=== PATIENT | male | born 1960 | race Caucasian/White ===

== ENCOUNTER 2016-05-13 12:10 | Inpatient (IN) | payer MEDICAID ==
[~2016-05-13] VITALS: Ht 182.9 cm; Wt 70.5 kg
[~2016-05-13 12:10] MED LIST: ATOR10TA PO; LISI5TAB7 PO; NOVALOG; [UNRECOGNIZED DRUG - OTHER]
[2016-05-13] MEDS ORDERED: ONDANSETRON 2MG/ML, 2ML IVPush ONE (12:30)
[2016-05-13] MEDS ORDERED: SODIUM CHLORIDE 0.9% 1,000ML IVBOLUS ONE (12:30)
[2016-05-13] MEDS ORDERED: ONDANSETRON 2MG/ML, 2ML ONE (12:40)
[2016-05-13 12:46] LABS: PH, VENOUS 7.371 pH (7.320-7.420)
[2016-05-13 12:47] LABS: HEMOGLOBIN 14.4 g/dL (13.7-18.0)
[2016-05-13 12:59] LABS: BLOOD UREA NITROGEN 14 mg/dL (7-18)
[2016-05-13 13:02] LABS: ASPARTATE AMINO TRANSFERASE 42 U/L (15-37)
[2016-05-13] MEDS ORDERED: INSULIN REGULAR 100 UNITS/ML, 3ML VIAL ONE (14:16)
[2016-05-13] MEDS ORDERED: INSULIN REGULAR 100 UNITS/ML, 3ML VIAL SQ-INSULIN ONE (14:30)
[2016-05-13] MEDS ORDERED: ASPI-621 PO (16:07)
[2016-05-13] MEDS ORDERED: INSU300I SQ (16:08)
[2016-05-13] MEDS ORDERED: INSU100C5 SQ-INSULIN (16:09)
[2016-05-13] MEDS: SODIUM CHLORIDE 0.9% 1,000 ML IV SCH ×2 (17:56→20:09)
[2016-05-13] MEDS ORDERED: BISACODYL 10 MG SUPP PR PRN (18:00)
[2016-05-13] MEDS ORDERED: ONDANSETRON 2MG/ML, 2ML IVP PRN (18:00)
[2016-05-13] MEDS ORDERED: DOCUSATE 100 MG CAPSULE PO PRN (18:00)
[2016-05-13] MEDS ORDERED: POLYETHYLENE GLYCOL 17 GM PACKET PO PRN (18:00)
[2016-05-13] MEDS: HEPARIN 5,000 UNITS/ML, 1ML SQ SCH (18:00)
[2016-05-13] MEDS: INSULIN REGULAR 100 UNITS/ML, 3ML VIAL SQ-INSULIN SCH ×2 (18:00→21:00)
[2016-05-13] MEDS ORDERED: ACETAMINOPHEN 325 MG TABLET PO PRN (18:00)
[2016-05-13] MEDS ORDERED: POTASSIUM PHOSPHATE 44 MEQ in SODIUM CHLORIDE 0.9% 500 ML IV ONE (18:30)
[2016-05-13 19:01] VITALS: BP 113/68
[2016-05-13] MEDS ORDERED: INSULIN GLARGINE HUM REC ANLOG 35 UNIT SQ SCH (21:00)
[2016-05-13 21:17] LABS: BLOOD UREA NITROGEN 10 mg/dL (7-18)
[2016-05-14] MEDS ORDERED: INSULIN DETEMIR 100 UNITS/ML, PEN SQ-INSULIN SCH (00:29)
[2016-05-14] MEDS: INSULIN REGULAR 100 UNITS/ML, 3ML VIAL SQ-INSULIN SCH (00:37)
[2016-05-14] MEDS: SODIUM CHLORIDE 0.9% 1,000 ML IV SCH ×2 (00:40→04:10)
[2016-05-14] MEDS ORDERED: HYDROcodone/APAP 5/325 TABLET PO PRN (01:30)
[2016-05-14] MEDS ORDERED: FAMOTIDINE 20 MG TABLET PO ONE (01:30)
[2016-05-14] MEDS ORDERED: MAALOX/HYOSCYAMINE/LIDOCAINE 45 ML BOTTLE PO ONE (01:30)
[2016-05-14] MEDS ORDERED: CALCIUM CARBONATE 500 MG TAB.CHEW PO PRN (01:30)
[2016-05-14] MEDS: HEPARIN 5,000 UNITS/ML, 1ML SQ SCH ×2 (02:00→07:53)
[2016-05-14 02:12] VITALS: BP 127/71
[2016-05-14 05:34] LABS: HEMOGLOBIN 11.3 g/dL (13.7-18.0)
[2016-05-14 06:01] LABS: ASPARTATE AMINO TRANSFERASE 69 U/L (15-37); BLOOD UREA NITROGEN 11 mg/dL (7-18)
[2016-05-14 07:18] VITALS: BP 128/71
[2016-05-14] MEDS ORDERED: FAMOTIDINE 20 MG TABLET PO SCH (09:00)
[2016-05-14] MEDS ORDERED: ASPIRIN 81 MG TABLET EC PO SCH (09:00)
== END 2016-05-14 10:33 | disposition home or self-care (01) | DRG 638 ==
LOC: ED 12:40 → EDIP 14:04 → 3NE 17:03 → DCLOUNGE 05-14 10:22
PROVIDERS: ADMIT Hospitalist; ATTEND Hospitalist
PROC: 0T9B70Z Drainage of Bladder with Drainage Device, Via Natural or Artificial Opening (ICD-10-PCS; principal; 2016-05-14)
DX: E10.10 Type 1 diabetes mellitus with ketoacidosis without coma (principal); D68.69 Other thrombophilia; I48.91 Unspecified atrial fibrillation; E10.42 Type 1 diabetes mellitus with diabetic polyneuropathy; Z79.82 Long term (current) use of aspirin; E78.5 Hyperlipidemia, unspecified; D72.829 Elevated white blood cell count, unspecified; E86.0 Dehydration; Z86.73 Personal history of transient ischemic attack (TIA), and cerebral infarction without residual deficits
CPT/HCPCS: 36415; 71010; 80048; 80053; 80061; 81003; 82010; 82803; 82962; 83036; 83690; 83735; 84100; 84443; 85025; 93005; 96361; 96372; 96374; J1815; J2405; J7030; J7040

== ENCOUNTER 2016-05-18 23:47 | Inpatient (IN) | payer MEDICAID ==
[~2016-05-18] VITALS: Ht 182.9 cm; Wt 66.8 kg
[~2016-05-18 23:47] MED LIST changes: +ASPI-621 PO; +INSU100C5 SQ-INSULIN; +INSU300I SQ
[2016-05-19] MEDS ORDERED: SODIUM CHLORIDE 0.9% 1,000ML IVBOLUS ONE ×2
[2016-05-19] MEDS ORDERED: ONDANSETRON 2MG/ML, 2ML ONE (00:17)
[2016-05-19 00:25] LABS: HEMOGLOBIN 13.2 g/dL (13.7-18.0)
[2016-05-19 00:27] LABS: PH, VENOUS 7.108 pH (7.320-7.420)
[2016-05-19] MEDS ORDERED: FAMOTIDINE 20 MG/2 ML IVPush ONE (00:30)
[2016-05-19] MEDS ORDERED: MAALOX/HYOSCYAMINE/LIDOCAINE 45 ML BOTTLE PO ONE (00:30)
[2016-05-19] MEDS ORDERED: MAALOX/HYOSCYAMINE/LIDOCAINE 45 ML BOTTLE ONE (00:31)
[2016-05-19] MEDS ORDERED: FAMOTIDINE 20 MG/2 ML ONE (00:31)
[2016-05-19 00:35] LABS: ASPARTATE AMINO TRANSFERASE 25 U/L (15-37); BLOOD UREA NITROGEN 20 mg/dL (7-18)
[2016-05-19] MEDS ORDERED: REGULAR INSULIN 62.5 UNITS in SODIUM CHLORIDE 0.9% 249.375 ML IV PRN (00:57)
[2016-05-19] MEDS ORDERED: SODIUM CHLORIDE 0.9% 1,000 ML IV ONE (01:00)
[2016-05-19] MEDS ORDERED: ONDANSETRON 2MG/ML, 2ML IVPush ONE ×2 (01:30)
[2016-05-19] MEDS ORDERED: LABETALOL 5MG/ML, 20ML IV PRN (02:00)
[2016-05-19] MEDS ORDERED: POLYETHYLENE GLYCOL 17 GM PACKET PO PRN (02:00)
[2016-05-19] MEDS ORDERED: TRAZODONE 50MG TABLET PO PRN (02:00)
[2016-05-19] MEDS ORDERED: BISACODYL 10 MG SUPP PR PRN (02:00)
[2016-05-19] MEDS ORDERED: DOCUSATE 100 MG CAPSULE PO PRN (02:00)
[2016-05-19] MEDS ORDERED: ONDANSETRON 2MG/ML, 2ML IVP PRN (02:00)
[2016-05-19] MEDS: NICOTINE 14MG/24 HR PATCH.TD24 TD SCH (02:31)
[2016-05-19] MEDS: SODIUM CHLORIDE 0.9% 1,000 ML IV SCH ×2 (02:32→06:52)
[2016-05-19] MEDS: HEPARIN 5,000 UNITS/ML, 1ML SQ SCH ×3 (02:40→17:24)
[2016-05-19 03:05] VITALS: BP 165/64
[2016-05-19 03:10] VITALS: BP 165/64
[2016-05-19 04:00] VITALS: BP 121/73
[2016-05-19 04:54] LABS: BLOOD UREA NITROGEN 18 mg/dL (7-18)
[2016-05-19] MEDS: D5%-0.45% NACL 1,000 ML IV SCH ×2 (05:30→12:10)
[2016-05-19 08:19] LABS: BLOOD UREA NITROGEN 15 mg/dL (7-18)
[2016-05-19] MEDS ORDERED: FAMOTIDINE 20 MG/2 ML IV SCH (09:00)
[2016-05-19] MEDS: ASPIRIN 81 MG TABLET CHEW PO SCH (11:29)
[2016-05-19 12:21] LABS: BLOOD UREA NITROGEN 11 mg/dL (7-18)
[2016-05-19 16:21] LABS: BLOOD UREA NITROGEN 9 mg/dL (7-18)
[2016-05-19] MEDS ORDERED: INSULIN ASPART 100 UNITS/ML, PEN ONE (17:17)
[2016-05-19] MEDS: INSULIN ASPART 100 UNITS/ML, PEN SQ-INSULIN SCH ×2 (17:22→21:56)
[2016-05-19] MEDS: INSULIN DETEMIR 100 UNITS/ML, PEN SQ-INSULIN SCH ×2 (17:22→21:57)
[2016-05-19 19:12] VITALS: BP 108/58
[2016-05-19] MEDS: FAMOTIDINE 20 MG TABLET PO SCH (21:54)
[2016-05-20] MEDS ORDERED: REGULAR INSULIN 62.5 UNITS in SODIUM CHLORIDE 0.9% 249.375 ML IV PRN (00:57)
[2016-05-20] MEDS: NICOTINE 14MG/24 HR PATCH.TD24 TD SCH (02:00)
[2016-05-20] MEDS: HEPARIN 5,000 UNITS/ML, 1ML SQ SCH ×2 (02:00→08:32)
[2016-05-20 03:14] VITALS: BP 112/64
[2016-05-20 06:01] LABS: HEMOGLOBIN 11.6 g/dL (13.7-18.0)
[2016-05-20 06:08] LABS: BLOOD UREA NITROGEN 9 mg/dL (7-18)
[2016-05-20 06:53] VITALS: BP 131/75
[2016-05-20] MEDS: INSULIN ASPART 100 UNITS/ML, PEN SQ-INSULIN SCH ×2 (07:00→11:06)
[2016-05-20] MEDS ORDERED: POTASSIUM CHLORIDE 20 MEQ TAB.ER.PRT PO ONE (09:00)
[2016-05-20] MEDS ORDERED: POTASSIUM CHLORIDE 10 MEQ TABLET.ER ONE (09:06)
[2016-05-20] MEDS: FAMOTIDINE 20 MG TABLET PO SCH (09:08)
[2016-05-20] MEDS: ASPIRIN 81 MG TABLET CHEW PO SCH (09:08)
[2016-05-20] MEDS: INSULIN DETEMIR 100 UNITS/ML, PEN SQ-INSULIN SCH (09:08)
[2016-05-20] MEDS ORDERED: NEUTRA PHOS K 250 MG TABLET PO SCH (10:00)
[2016-05-20] MEDS ORDERED: NICO1PAT4 TD (10:12)
[2016-05-20] MEDS ORDERED: ASPI-515 PO (10:12)
== END 2016-05-20 11:32 | disposition home or self-care (01) | DRG 639 ==
LOC: ED 23:59 → EDIP 05-19 00:58 → CCU 05-19 02:06 → 3NE 05-19 18:37 → DCLOUNGE 05-20 11:11
PROVIDERS: ADMIT Internal Medicine; ATTEND Internal Medicine
PROC: 0T9B70Z Drainage of Bladder with Drainage Device, Via Natural or Artificial Opening (ICD-10-PCS; principal; 2016-05-19)
DX: E13.10 Other specified diabetes mellitus with ketoacidosis without coma (principal); I48.0 Paroxysmal atrial fibrillation; E78.5 Hyperlipidemia, unspecified; E87.6 Hypokalemia; D72.828 Other elevated white blood cell count; E83.39 Other disorders of phosphorus metabolism; F17.200 Nicotine dependence, unspecified, uncomplicated; D63.8 Anemia in other chronic diseases classified elsewhere; G47.00 Insomnia, unspecified; Z86.73 Personal history of transient ischemic attack (TIA), and cerebral infarction without residual deficits; Z79.4 Long term (current) use of insulin; Z82.49 Family history of ischemic heart disease and other diseases of the circulatory system; Z71.6 Tobacco abuse counseling
CPT/HCPCS: 36415; 80048; 80053; 81003; 82010; 82803; 82962; 83036; 83735; 84100; 85025; 87081; 93005; 96374; 96375; J1815; J2405; J7030; J7050; S0028

== ENCOUNTER 2016-05-25 12:19 | Emergency (ER) | payer SELFPAY ==
[~2016-05-25] VITALS: Ht 182.9 cm; Wt 68.0 kg
[~2016-05-25 12:19] MED LIST changes: +ASPI-515 PO; +NICO1PAT4 TD
[2016-05-25] MEDS ORDERED: SODIUM CHLORIDE 0.9% 1,000 ML IV ONE (12:46)
[2016-05-25] MEDS ORDERED: ONDANSETRON 2MG/ML, 2ML ONE (12:50)
[2016-05-25] MEDS ORDERED: SODIUM CHLORIDE 0.9% 1,000ML IVBOLUS ONE ×3 (13:00→15:30)
[2016-05-25] MEDS ORDERED: ONDANSETRON 2MG/ML, 2ML IVPush ONE (13:00)
[2016-05-25 13:03] LABS: PH, VENOUS 7.384 pH (7.320-7.420)
[2016-05-25 13:04] LABS: HEMOGLOBIN 12.7 g/dL (13.7-18.0)
[2016-05-25 13:17] LABS: ASPARTATE AMINO TRANSFERASE 18 U/L (15-37); BLOOD UREA NITROGEN 20 mg/dL (7-18)
[2016-05-25 17:27] VITALS: BP 119/71
== END 2016-05-25 17:32 | disposition home or self-care (01) ==
LOC: ED 16:01
DX: E86.0 Dehydration (principal); E11.65 Type 2 diabetes mellitus with hyperglycemia; I48.91 Unspecified atrial fibrillation; E11.40 Type 2 diabetes mellitus with diabetic neuropathy, unspecified; R11.2 Nausea with vomiting, unspecified; Z86.73 Personal history of transient ischemic attack (TIA), and cerebral infarction without residual deficits
CPT/HCPCS: 36415; 80053; 81003; 82010; 82803; 82962; 85025; 93005; 96361; 96374; 99285; J2405; J7030

== ENCOUNTER 2016-05-30 12:48 | Inpatient (IN) | payer SELFPAY ==
[~2016-05-30] VITALS: Ht 182.9 cm; Wt 68.0 kg
[2016-05-30] MEDS ORDERED: SODIUM CHLORIDE 0.9% 1,000ML IVBOLUS ONE ×3 (13:30→17:00)
[2016-05-30] MEDS ORDERED: INSU300I SQ (13:32)
[2016-05-30 14:06] LABS: ASPARTATE AMINO TRANSFERASE 24 U/L (15-37); BLOOD UREA NITROGEN 20 mg/dL (7-18)
[2016-05-30] MEDS ORDERED: ONDANSETRON 2MG/ML, 2ML ONE (14:19)
[2016-05-30] MEDS ORDERED: REGULAR INSULIN 62.5 UNITS in SODIUM CHLORIDE 0.9% 249.375 ML IV PRN ×2 (14:21→16:30)
[2016-05-30 14:24] LABS: HEMOGLOBIN 12.1 g/dL (13.7-18.0)
[2016-05-30] MEDS ORDERED: ONDANSETRON 2MG/ML, 2ML IVPush ONE (14:30)
[2016-05-30] MEDS ORDERED: PROMETHAZINE 25 MG/ML, 1ML ONE (14:47)
[2016-05-30] MEDS ORDERED: PROMETHAZINE 25 MG/ML, 1ML IM ONE (15:00)
[2016-05-30] MEDS ORDERED: POLYETHYLENE GLYCOL 17 GM PACKET PO PRN (16:30)
[2016-05-30] MEDS ORDERED: PROMETHAZINE 25 MG/ML, 1ML IM PRN (16:30)
[2016-05-30] MEDS ORDERED: ONDANSETRON 2MG/ML, 2ML IVP PRN (16:30)
[2016-05-30] MEDS ORDERED: DOCUSATE 100 MG CAPSULE PO PRN (16:30)
[2016-05-30] MEDS ORDERED: HYDROcodone/APAP 5/325 TABLET PO PRN (16:30)
[2016-05-30] MEDS ORDERED: BISACODYL 10 MG SUPP PR PRN (16:30)
[2016-05-30] MEDS: NICOTINE 14MG/24 HR PATCH.TD24 TD SCH (16:30)
[2016-05-30] MEDS: SODIUM CHLORIDE 0.9% 1,000 ML IV SCH ×2 (17:03→22:55)
[2016-05-30 18:09] LABS: BLOOD UREA NITROGEN 16 mg/dL (7-18)
[2016-05-30] MEDS: ENOXAPARIN 40 MG/0.4 ML SQ SCH (18:30)
[2016-05-30 19:00] VITALS: BP 117/79
[2016-05-30] MEDS ORDERED: D5%-0.45% NACL 1,000 ML IV SCH ×2 (20:00→20:11)
[2016-05-30] MEDS ORDERED: FAMOTIDINE 20 MG/2 ML IV SCH (21:00)
[2016-05-30 22:08] LABS: BLOOD UREA NITROGEN 12 mg/dL (7-18)
[2016-05-31 02:05] LABS: BLOOD UREA NITROGEN 10 mg/dL (7-18)
[2016-05-31 04:48] LABS: HEMOGLOBIN 11.1 g/dL (13.7-18.0)
[2016-05-31 04:53] LABS: ASPARTATE AMINO TRANSFERASE 15 U/L (15-37); BLOOD UREA NITROGEN 9 mg/dL (7-18)
[2016-05-31] MEDS: SODIUM CHLORIDE 0.9% 1,000 ML IV SCH ×3 (05:35→21:00)
[2016-05-31] MEDS: ASPIRIN 81 MG TABLET EC PO SCH (07:45)
[2016-05-31] MEDS: INSULIN DETEMIR 100 UNITS/ML, PEN SQ-INSULIN SCH ×2 (07:46→20:59)
[2016-05-31 09:38] LABS: BLOOD UREA NITROGEN 7 mg/dL (7-18)
[2016-05-31] MEDS: INSULIN ASPART 100 UNITS/ML, PEN SQ-INSULIN SCH ×3 (11:50→20:59)
[2016-05-31] MEDS: NICOTINE 14MG/24 HR PATCH.TD24 TD SCH (16:26)
[2016-05-31] MEDS: CEFTRIAXONE PMX 1GM/50ML 50 ML IV SCH (16:33)
[2016-05-31] MEDS: ENOXAPARIN 40 MG/0.4 ML SQ SCH (18:22)
[2016-05-31 18:25] VITALS: BP 134/78
[2016-05-31] MEDS: DOXYCYCLINE 100MG TABLET PO SCH (20:57)
[2016-06-01 01:28] VITALS: BP 120/71
[2016-06-01 06:11] LABS: BLOOD UREA NITROGEN 8 mg/dL (7-18)
[2016-06-01 06:18] LABS: HEMOGLOBIN 10.9 g/dL (13.7-18.0)
[2016-06-01 06:44] VITALS: BP 130/78
[2016-06-01] MEDS ORDERED: POTASSIUM CHLORIDE 20 MEQ TAB.ER.PRT PO ONE (07:30)
[2016-06-01] MEDS: INSULIN ASPART 100 UNITS/ML, PEN SQ-INSULIN SCH ×4 (07:34→21:34)
[2016-06-01] MEDS: ASPIRIN 81 MG TABLET EC PO SCH (07:46)
[2016-06-01] MEDS: DOXYCYCLINE 100MG TABLET PO SCH ×2 (07:46→21:33)
[2016-06-01] MEDS: INSULIN DETEMIR 100 UNITS/ML, PEN SQ-INSULIN SCH ×3 (09:02→21:35)
[2016-06-01] MEDS: SODIUM CHLORIDE 0.9% 1,000 ML IV SCH (09:15)
[2016-06-01 12:48] VITALS: BP 139/88
[2016-06-01] MEDS: CEFTRIAXONE PMX 1GM/50ML 50 ML IV SCH (17:05)
[2016-06-01] MEDS: NICOTINE 14MG/24 HR PATCH.TD24 TD SCH (17:05)
[2016-06-01] MEDS: ENOXAPARIN 40 MG/0.4 ML SQ SCH (17:16)
[2016-06-01 18:25] VITALS: BP 120/72
[2016-06-02 00:59] VITALS: BP 126/79
[2016-06-02 06:44] VITALS: BP 111/70
[2016-06-02] MEDS: INSULIN ASPART 100 UNITS/ML, PEN SQ-INSULIN SCH ×4 (07:50→20:51)
[2016-06-02] MEDS: DOXYCYCLINE 100MG TABLET PO SCH ×2 (09:20→20:50)
[2016-06-02] MEDS: INSULIN DETEMIR 100 UNITS/ML, PEN SQ-INSULIN SCH ×2 (09:22→20:52)
[2016-06-02] MEDS: ASPIRIN 81 MG TABLET EC PO SCH (09:22)
[2016-06-02 13:34] VITALS: BP 120/77
[2016-06-02] MEDS: CEFTRIAXONE PMX 1GM/50ML 50 ML IV SCH (16:28)
[2016-06-02] MEDS: NICOTINE 14MG/24 HR PATCH.TD24 TD SCH (16:30)
[2016-06-02] MEDS: ENOXAPARIN 40 MG/0.4 ML SQ SCH (17:42)
[2016-06-03 02:00] VITALS: BP 132/86
[2016-06-03] MEDS: DOXYCYCLINE 100MG TABLET PO SCH (07:51)
[2016-06-03] MEDS: ASPIRIN 81 MG TABLET EC PO SCH (07:51)
[2016-06-03] MEDS: INSULIN ASPART 100 UNITS/ML, PEN SQ-INSULIN SCH ×2 (07:52→11:19)
[2016-06-03 08:00] VITALS: BP 117/78
[2016-06-03] MEDS: INSULIN DETEMIR 100 UNITS/ML, PEN SQ-INSULIN SCH (11:20)
[2016-06-03] MEDS ORDERED: CEFD300C2 PO (11:47)
[2016-06-03] MEDS ORDERED: DOXY100C2 PO (11:47)
[2016-06-03] MEDS ORDERED: INSU100V13 SC (12:13)
== END 2016-06-03 13:25 | disposition home or self-care (01) | DRG 637 ==
LOC: ED 13:37 → EDIP 14:58 → CCU 18:10 → 3NE 05-31 16:27 → DCLOUNGE 06-03 13:05
PROVIDERS: ADMIT Hospitalist
PROC: 0T9B70Z Drainage of Bladder with Drainage Device, Via Natural or Artificial Opening (ICD-10-PCS; principal; 2016-05-30)
DX: E13.10 Other specified diabetes mellitus with ketoacidosis without coma (principal); J18.9 Pneumonia, unspecified organism; E43 Unspecified severe protein-calorie malnutrition; E87.1 Hypo-osmolality and hyponatremia; E78.5 Hyperlipidemia, unspecified; E87.5 Hyperkalemia; I48.0 Paroxysmal atrial fibrillation; F17.220 Nicotine dependence, chewing tobacco, uncomplicated; E11.649 Type 2 diabetes mellitus with hypoglycemia without coma; Z86.73 Personal history of transient ischemic attack (TIA), and cerebral infarction without residual deficits; Z91.19 Patient's noncompliance with other medical treatment and regimen; Z79.82 Long term (current) use of aspirin; Z79.4 Long term (current) use of insulin; Z68.20 Body mass index [BMI] 20.0-20.9, adult
CPT/HCPCS: 36415; 71010; 80048; 80053; 81001; 82010; 82803; 82947; 82962; 83036; 83605; 85025; 87081; 93005; 96361; 96365; 96366; 96372; 96375; J0696; J1815; J2405; J2550; J7030; J7050; S0028

== ENCOUNTER 2016-06-15 13:12 | Inpatient (IN) | payer MEDICAID, OTHER ==
[~2016-06-15] VITALS: Ht 182.9 cm; Wt 70.6 kg
[~2016-06-15 13:12] MED LIST changes: +CEFD300C2 PO; +DOXY100C2 PO; +INSU100V13 SC
[2016-06-15] MEDS ORDERED: SODIUM CHLORIDE 0.9% 1,000ML IVBOLUS ONE ×2 (13:30→15:00)
[2016-06-15] MEDS ORDERED: ONDANSETRON 2MG/ML, 2ML IVPush ONE (13:30)
[2016-06-15 13:49] LABS: PH, VENOUS 7.238 pH (7.320-7.420)
[2016-06-15] MEDS ORDERED: INSULIN REGULAR 100 UNITS/ML, 3ML VIAL IV ONE (14:00)
[2016-06-15 14:03] LABS: ASPARTATE AMINO TRANSFERASE 13 U/L (15-37); BLOOD UREA NITROGEN 19 mg/dL (7-18)
[2016-06-15] MEDS ORDERED: INSULIN REGULAR 100 UNITS/ML, 3ML VIAL ONE (14:12)
[2016-06-15] MEDS ORDERED: REGULAR INSULIN 62.5 UNITS in SODIUM CHLORIDE 0.9% 249.375 ML IV PRN ×2 (14:42→15:30)
[2016-06-15] MEDS ORDERED: ACETAMINOPHEN 325 MG TABLET PO PRN (15:30)
[2016-06-15] MEDS ORDERED: OXYcodone IR 5MG TABLET PO PRN (15:30)
[2016-06-15] MEDS ORDERED: TEMAZEPAM 15 MG CAPSULE PO PRN (15:30)
[2016-06-15] MEDS ORDERED: POLYETHYLENE GLYCOL 17 GM PACKET PO PRN (15:30)
[2016-06-15] MEDS ORDERED: ONDANSETRON 2MG/ML, 2ML IVP PRN (15:30)
[2016-06-15] MEDS: ENOXAPARIN 40 MG/0.4 ML SQ SCH (16:30)
[2016-06-15] MEDS: SODIUM CHLORIDE 0.9% 1,000 ML IV SCH ×2 (17:00→21:56)
[2016-06-15 18:34] LABS: BLOOD UREA NITROGEN 14 mg/dL (7-18)
[2016-06-15] MEDS: D5%-0.45NACL+KCL 20MEQ 1,000 ML IV SCH (19:52)
[2016-06-15 22:32] LABS: BLOOD UREA NITROGEN 10 mg/dL (7-18)
[2016-06-16] MEDS: D5%-0.45NACL+KCL 20MEQ 1,000 ML IV SCH (01:47)
[2016-06-16 02:36] LABS: BLOOD UREA NITROGEN 8 mg/dL (7-18)
[2016-06-16] MEDS: SODIUM CHLORIDE 0.9% 1,000 ML IV SCH (05:51)
[2016-06-16 06:33] LABS: ASPARTATE AMINO TRANSFERASE 10 U/L (15-37); BLOOD UREA NITROGEN 7 mg/dL (7-18)
[2016-06-16] MEDS: ASPIRIN 325 MG TABLET EC PO SCH ×2 (07:41→21:13)
[2016-06-16] MEDS ORDERED: INSULIN DETEMIR 100 UNITS/ML, PEN ONE (07:42)
[2016-06-16] MEDS: PANTOPROZOLE 40MG TABLET PO SCH (07:58)
[2016-06-16] MEDS: INSULIN DETEMIR 100 UNITS/ML, PEN SQ-INSULIN SCH ×2 (07:58→20:08)
[2016-06-16] MEDS: ASPIRIN 81 MG TABLET EC PO SCH (07:59)
[2016-06-16] MEDS: SENNA/DOCUSATE TABLET PO SCH (07:59)
[2016-06-16] MEDS: INSULIN ASPART 100 UNITS/ML, PEN SQ-INSULIN SCH ×4 (08:00→20:08)
[2016-06-16] MEDS ORDERED: INSULIN ASPART 100 UNITS/ML, PEN ONE (08:01)
[2016-06-16 12:55] VITALS: BP 137/78
[2016-06-16] MEDS: ENOXAPARIN 40 MG/0.4 ML SQ SCH (16:30)
[2016-06-16 18:53] VITALS: BP 136/77
[2016-06-16] MEDS: [UNRECOGNIZED DRUG - OTHER] MC SCH (21:00)
[2016-06-17 01:10] VITALS: BP 127/78
[2016-06-17] MEDS: [UNRECOGNIZED DRUG - OTHER] MC SCH ×2 (05:22→13:00)
[2016-06-17] MEDS: ASPIRIN 81 MG TABLET EC PO SCH (05:34)
[2016-06-17] MEDS: INSULIN DETEMIR 100 UNITS/ML, PEN SQ-INSULIN SCH (08:40)
[2016-06-17] MEDS: PANTOPROZOLE 40MG TABLET PO SCH (08:40)
[2016-06-17] MEDS: INSULIN ASPART 100 UNITS/ML, PEN SQ-INSULIN SCH ×2 (08:41→13:25)
[2016-06-17 08:49] VITALS: BP 128/73
[2016-06-17] MEDS: SENNA/DOCUSATE TABLET PO SCH (09:00)
== END 2016-06-17 16:15 | disposition home or self-care (01) | DRG 638 ==
LOC: ED 14:52 → EDIP 14:53 → ED 15:09 → CCU 15:54 → 4EST 06-16 09:05 → DCLOUNGE 06-17 16:10
PROVIDERS: ADMIT Internal Medicine; ATTEND Internal Medicine
PROC: 0T9B70Z Drainage of Bladder with Drainage Device, Via Natural or Artificial Opening (ICD-10-PCS; principal; 2016-06-15)
DX: E13.10 Other specified diabetes mellitus with ketoacidosis without coma (principal); E87.1 Hypo-osmolality and hyponatremia; F10.21 Alcohol dependence, in remission; E86.0 Dehydration; I48.91 Unspecified atrial fibrillation; Z79.4 Long term (current) use of insulin; Z86.73 Personal history of transient ischemic attack (TIA), and cerebral infarction without residual deficits; Z91.19 Patient's noncompliance with other medical treatment and regimen; E78.5 Hyperlipidemia, unspecified; Z72.0 Tobacco use; Z87.01 Personal history of pneumonia (recurrent); G62.9 Polyneuropathy, unspecified
CPT/HCPCS: 36415; 71010; 80048; 80053; 81003; 82803; 82962; 83690; 83930; 85025; 87081; 93005; 96361; 96374; J1815; J3480; J7030; J7050

== ENCOUNTER 2016-07-04 17:35 | Observation (INO) | payer MEDICAID ==
[~2016-07-04] VITALS: Ht 182.9 cm; Wt 68.3 kg
[~2016-07-04 17:35] MED LIST changes: -CEFD300C2 PO; +CEFD300C37 PO
[2016-07-04] MEDS ORDERED: RIVA15TA PO (17:54)
[2016-07-04] MEDS ORDERED: SODIUM CHLORIDE FLUSH 10ML SYR IVF ONE (18:30)
[2016-07-04] MEDS ORDERED: SODIUM CHLORIDE 0.9% 1,000ML IVBOLUS ONE (18:30)
[2016-07-04] MEDS ORDERED: ONDANSETRON 2MG/ML, 2ML IVPush ONE (18:30)
[2016-07-04 18:52] LABS: ASPARTATE AMINO TRANSFERASE 19 U/L (15-37); BLOOD UREA NITROGEN 17 mg/dL (7-18)
[2016-07-04 18:58] LABS: IS PT STATUS REG ER OR PRE ER? YES
[2016-07-04] MEDS ORDERED: ONDANSETRON 2MG/ML, 2ML ONE (18:58)
[2016-07-04 19:41] LABS: PH, VENOUS 7.397 pH (7.320-7.420)
[2016-07-04] MEDS ORDERED: ONDANSETRON ODT 4 MG PO PRN (22:30)
[2016-07-04] MEDS ORDERED: DOCUSATE 100 MG CAPSULE PO PRN (22:30)
[2016-07-04] MEDS ORDERED: TEMAZEPAM 15 MG CAPSULE PO PRN (22:30)
[2016-07-04] MEDS ORDERED: hydrALAzine 20 MG/ML, 1ML IVPush PRN (22:30)
[2016-07-04] MEDS: SODIUM CHLORIDE 0.9% 1,000 ML IV SCH (23:42)
[2016-07-05] MEDS: INSULIN ASPART 100 UNITS/ML, PEN SQ-INSULIN SCH ×3 (00:47→11:51)
[2016-07-05 01:25] VITALS: BP 117/70
[2016-07-05 04:26] VITALS: BP 131/81
[2016-07-05 05:32] LABS: BLOOD UREA NITROGEN 13 mg/dL (7-18)
[2016-07-05 07:08] VITALS: BP 135/87
[2016-07-05] MEDS ORDERED: RIVAROXABAN 15 MG TABLET PO SCH (09:00)
[2016-07-05] MEDS ORDERED: INSULIN DETEMIR 100 UNITS/ML, PEN SQ-INSULIN SCH (09:00)
[2016-07-05] MEDS ORDERED: ASPIRIN 81 MG TABLET EC PO SCH (09:00)
[2016-07-05] MEDS: SODIUM CHLORIDE 0.9% 1,000 ML IV SCH (11:42)
[2016-07-05 13:00] VITALS: BP 117/72
== END 2016-07-05 13:30 | disposition home or self-care (01) ==
LOC: ED 18:11 → INTOOBSV 20:44 → EDIP 20:44 → 4EST 22:25 → 4NOR 07-05 01:13
PROVIDERS: ADMIT Internal Medicine; ATTEND Internal Medicine
DX: E11.00 Type 2 diabetes mellitus with hyperosmolarity without nonketotic hyperglycemic-hyperosmolar coma (NKHHC) (principal); E13.10 Other specified diabetes mellitus with ketoacidosis without coma; I48.91 Unspecified atrial fibrillation; E87.1 Hypo-osmolality and hyponatremia; E44.0 Moderate protein-calorie malnutrition; D68.69 Other thrombophilia; F10.21 Alcohol dependence, in remission; Z86.73 Personal history of transient ischemic attack (TIA), and cerebral infarction without residual deficits; Z82.49 Family history of ischemic heart disease and other diseases of the circulatory system; Z72.0 Tobacco use; Z91.19 Patient's noncompliance with other medical treatment and regimen
CPT/HCPCS: 36415; 71010; 80048; 80053; 82010; 82803; 82962; 83036; 84484; 85025; 93005; 96361; 96372; 96374; 99285; G0378; J1815; J2405; J7030

== ENCOUNTER 2016-07-07 18:33 | Emergency (ER) | payer MEDICAID ==
[~2016-07-07] VITALS: Ht 185.4 cm; Wt 74.0 kg
[~2016-07-07 18:33] MED LIST changes: +RIVA15TA PO
[2016-07-07] MEDS ORDERED: SODIUM CHLORIDE 0.9% 1,000ML IVBOLUS ONE (19:00)
[2016-07-07] MEDS ORDERED: ONDANSETRON 2MG/ML, 2ML IVPush ONE (19:00)
[2016-07-07 19:23] LABS: BLOOD UREA NITROGEN 18 mg/dL (7-18)
[2016-07-07 19:26] LABS: PH, VENOUS 7.384 pH (7.320-7.420)
[2016-07-07 20:14] VITALS: BP 124/75
== END 2016-07-07 20:18 | disposition home or self-care (01) ==
LOC: ED 20:12
DX: E11.65 Type 2 diabetes mellitus with hyperglycemia (principal); E11.40 Type 2 diabetes mellitus with diabetic neuropathy, unspecified; E13.10 Other specified diabetes mellitus with ketoacidosis without coma; I48.91 Unspecified atrial fibrillation; Z86.73 Personal history of transient ischemic attack (TIA), and cerebral infarction without residual deficits
CPT/HCPCS: 36415; 80048; 82010; 82040; 82803; 85025; 99284

== ENCOUNTER 2016-07-08 22:59 | Emergency (ER) | payer MEDICAID ==
[~2016-07-08] VITALS: Ht 182.9 cm; Wt 70.0 kg
[2016-07-08 23:55] LABS: BLOOD UREA NITROGEN 17 mg/dL (7-18)
[2016-07-09] MEDS ORDERED: INSULIN REGULAR 100 UNITS/ML, 3ML VIAL SQ-INSULIN ONE
[2016-07-09] MEDS ORDERED: ONDANSETRON ODT 8 MG PO ONE
[2016-07-09] MEDS ORDERED: SODIUM CHLORIDE 0.9% 1,000ML IVBOLUS ONE
[2016-07-09] MEDS ORDERED: INSULIN REGULAR 100 UNITS/ML, 3ML VIAL ONE (00:35)
[2016-07-09 01:54] LABS: BLOOD UREA NITROGEN 14 mg/dL (7-18)
[2016-07-09 02:15] VITALS: BP 121/72
[2016-07-13] MEDS ORDERED: INSU100I18 SQ-INSULIN (12:24)
[2016-07-13] MEDS ORDERED: INSU100I28 SQ-INSULIN (12:24)
== END 2016-07-09 02:17 | disposition home or self-care (01) ==
LOC: ED 07-09 01:14
DX: E11.65 Type 2 diabetes mellitus with hyperglycemia (principal); R11.0 Nausea; I48.91 Unspecified atrial fibrillation
CPT/HCPCS: 36415; 80048; 82040; 82962; 85025; 96360; 96372; 99284; J7030

== ENCOUNTER 2016-07-16 00:38 | Inpatient (IN) | payer MEDICAID ==
[~2016-07-16] VITALS: Ht 182.9 cm; Wt 71.3 kg
[~2016-07-16 00:38] MED LIST changes: +INSU100I18 SQ-INSULIN; +INSU100I28 SQ-INSULIN
[2016-07-16 01:43] LABS: ASPARTATE AMINO TRANSFERASE 22 U/L (15-37); BLOOD UREA NITROGEN 13 mg/dL (7-18)
[2016-07-16] MEDS ORDERED: D5%-0.45% NACL 1,000 ML IV SCH (03:00)
[2016-07-16] MEDS ORDERED: ONDANSETRON 2MG/ML, 2ML IVPush PRN (04:00)
[2016-07-16] MEDS ORDERED: GUAIFENESIN/DM 200-20MG, 10ML UDC PO PRN (04:00)
[2016-07-16] MEDS ORDERED: HYDROcodone/APAP 5/325 TABLET PO PRN (04:00)
[2016-07-16] MEDS ORDERED: POTASSIUM CHLORIDE 20 MEQ TAB.ER.PRT PO ONE (04:00)
[2016-07-16] MEDS ORDERED: POTASSIUM CHLORIDE 20 MEQ TAB.ER.PRT ONE ×2 (04:02→08:08)
[2016-07-16] MEDS ORDERED: ASPIRIN 81 MG TABLET CHEW ONE (08:08)
[2016-07-16] MEDS ORDERED: FAMOTIDINE 20 MG TABLET ONE (08:08)
[2016-07-16] MEDS: POTASSIUM CHLORIDE 20 MEQ TAB.ER.PRT PO SCH ×2 (08:11→22:32)
[2016-07-16] MEDS: FAMOTIDINE 20 MG TABLET PO SCH ×2 (08:12→22:32)
[2016-07-16] MEDS: INSULIN ASPART 100 UNITS/ML, PEN SQ-INSULIN SCH ×4 (08:12→21:00)
[2016-07-16] MEDS: ASPIRIN 81 MG TABLET EC PO SCH (09:16)
[2016-07-16] MEDS: RIVAROXABAN 15 MG TABLET PO SCH (09:16)
[2016-07-16] MEDS ORDERED: GLUCAGON 1 MG IM PRN (15:30)
[2016-07-16] MEDS ORDERED: DEXTROSE 4 GM TAB.CHEW PO PRN (15:30)
[2016-07-16] MEDS ORDERED: DEXTROSE 50%, 50ML SYRINGE IVPush PRN (15:30)
[2016-07-16] MEDS ORDERED: DEXTROSE 50%, 50ML VIAL ONE (15:31)
[2016-07-16 19:24] VITALS: BP 124/74
[2016-07-16] MEDS ORDERED: SODIUM CHLORIDE FLUSH 10ML SYR IVF SCH (21:00)
[2016-07-16] MEDS: DEXTROSE 5% 1,000 ML IV SCH (22:59)
[2016-07-16] MEDS ORDERED: DEXTROSE 5% 250 ML IV SCH (23:00)
[2016-07-16] MEDS ORDERED: DEXTROSE 5% 1,000 ML IV SCH (23:00)
[2016-07-17 02:12] VITALS: BP 122/74
[2016-07-17] MEDS: DEXTROSE 5% 1,000 ML IV SCH (04:33)
[2016-07-17 05:16] LABS: BLOOD UREA NITROGEN 14 mg/dL (7-18)
[2016-07-17] MEDS: INSULIN ASPART 100 UNITS/ML, PEN SQ-INSULIN SCH (07:00)
[2016-07-17 07:34] VITALS: BP 125/74
[2016-07-17] MEDS ORDERED: INSULIN DETEMIR 100 UNITS/ML, PEN SQ-INSULIN SCH (09:00)
[2016-07-17] MEDS: ASPIRIN 81 MG TABLET EC PO SCH (09:11)
[2016-07-17] MEDS: FAMOTIDINE 20 MG TABLET PO SCH ×2 (09:11→21:57)
[2016-07-17] MEDS: RIVAROXABAN 15 MG TABLET PO SCH (09:11)
[2016-07-17] MEDS: POTASSIUM CHLORIDE 20 MEQ TAB.ER.PRT PO SCH ×2 (09:12→16:56)
[2016-07-17] MEDS: INSULIN DETEMIR 100 UNITS/ML, PEN SQ-INSULIN SCH (11:55)
[2016-07-17 12:52] VITALS: BP 140/82
[2016-07-17 19:49] VITALS: BP 133/81
[2016-07-18 01:21] VITALS: BP 123/71
[2016-07-18] MEDS: RIVAROXABAN 15 MG TABLET PO SCH (07:42)
[2016-07-18] MEDS: POTASSIUM CHLORIDE 20 MEQ TAB.ER.PRT PO SCH (07:42)
[2016-07-18] MEDS: ASPIRIN 81 MG TABLET EC PO SCH (07:43)
[2016-07-18] MEDS: FAMOTIDINE 20 MG TABLET PO SCH (07:43)
[2016-07-18 07:59] VITALS: BP 144/88
[2016-07-18] MEDS: INSULIN DETEMIR 100 UNITS/ML, PEN SQ-INSULIN SCH (09:07)
== END 2016-07-18 09:25 | disposition home or self-care (01) | DRG 638 ==
LOC: ED 02:38 → EDIP 02:56 → 3NE 16:04
PROVIDERS: ADMIT Internal Medicine
DX: E11.649 Type 2 diabetes mellitus with hypoglycemia without coma (principal); E46 Unspecified protein-calorie malnutrition; D68.69 Other thrombophilia; E87.6 Hypokalemia; I10 Essential (primary) hypertension; D64.9 Anemia, unspecified; I48.2 Chronic atrial fibrillation; E11.65 Type 2 diabetes mellitus with hyperglycemia; Z79.82 Long term (current) use of aspirin; Z79.4 Long term (current) use of insulin; Z79.01 Long term (current) use of anticoagulants; Z86.73 Personal history of transient ischemic attack (TIA), and cerebral infarction without residual deficits; Z59.0 Homelessness; Z82.49 Family history of ischemic heart disease and other diseases of the circulatory system
CPT/HCPCS: 36415; 80048; 80053; 82947; 82962; 85025; 96365; 96366; 96376; J1815; J7070

== ENCOUNTER 2016-07-27 00:21 | Emergency (ER) | payer MEDICAID ==
[~2016-07-27] VITALS: Ht 182.9 cm; Wt 70.0 kg
[2016-07-27] MEDS ORDERED: INSU300I INJ (00:47)
[2016-07-27] MEDS ORDERED: INSU100C5 SQ-INSULIN (00:47)
[2016-07-27 00:58] LABS: BLOOD UREA NITROGEN 13 mg/dL (7-18)
[2016-07-27 01:32] VITALS: BP 136/77
== END 2016-07-27 02:18 | disposition home or self-care (01) ==
LOC: ED 00:56
DX: E10.649 Type 1 diabetes mellitus with hypoglycemia without coma (principal)
CPT/HCPCS: 36415; 80048; 82040; 82962; 99283

== ENCOUNTER 2016-07-31 15:44 | Emergency (ER) | payer MEDICAID ==
[~2016-07-31] VITALS: Ht 182.9 cm; Wt 76.7 kg
[~2016-07-31 15:44] MED LIST changes: +INSU300I INJ
[2016-07-31 16:22] LABS: ASPARTATE AMINO TRANSFERASE 14 U/L (15-37); BLOOD UREA NITROGEN 22 mg/dL (7-18)
[2016-07-31] MEDS ORDERED: AMPICILLIN/SULBACTAM 3 GM in SODIUM CHLORIDE 0.9% 100 ML IV ONE (16:30)
[2016-07-31] MEDS ORDERED: DIPH,PERTUSS(ACELL),TET VAC/PF 0.5 ML IM-VACC ONE ×2 (16:30→16:34)
[2016-07-31] MEDS ORDERED: SODIUM CHLORIDE FLUSH 10ML SYR IVF ONE (16:30)
[2016-07-31 17:20] VITALS: BP 129/84
== END 2016-07-31 18:22 | disposition home or self-care (01) ==
LOC: ED 16:20
DX: L03.115 Cellulitis of right lower limb (principal); I48.91 Unspecified atrial fibrillation; E11.40 Type 2 diabetes mellitus with diabetic neuropathy, unspecified; E13.10 Other specified diabetes mellitus with ketoacidosis without coma; Z86.73 Personal history of transient ischemic attack (TIA), and cerebral infarction without residual deficits; Z23 Encounter for immunization
CPT/HCPCS: 36415; 80053; 85025; 90471; 90715; 93971; 96365; 99285; J0295

== ENCOUNTER 2016-08-12 10:47 | Emergency (ER) | payer MEDICAID ==
[~2016-08-12] VITALS: Ht 182.9 cm; Wt 71.5 kg
[2016-08-12] MEDS ORDERED: ONDANSETRON 2MG/ML, 2ML IVPush ONE (11:30)
[2016-08-12] MEDS ORDERED: SODIUM CHLORIDE 0.9% 1,000ML IVBOLUS ONE ×2 (11:30→13:00)
[2016-08-12 11:45] LABS: FIO2 ROOM AIR %
[2016-08-12 11:55] LABS: ASPARTATE AMINO TRANSFERASE 8 U/L (15-37); BLOOD UREA NITROGEN 15 mg/dL (7-18)
[2016-08-12] MEDS ORDERED: INSULIN REGULAR 100 UNITS/ML, 3ML VIAL SQ-INSULIN ONE (13:00)
[2016-08-12] MEDS ORDERED: INSULIN REGULAR 100 UNITS/ML, 3ML VIAL ONE (13:05)
[2016-08-12 14:10] VITALS: BP 108/57
[2016-08-12 14:29] LABS: BLOOD UREA NITROGEN 12 mg/dL (7-18)
== END 2016-08-12 14:48 | disposition home or self-care (01) ==
LOC: ED 14:01
DX: E86.0 Dehydration (principal); E11.65 Type 2 diabetes mellitus with hyperglycemia; Z59.0 Homelessness
CPT/HCPCS: 36415; 80048; 80053; 81003; 82010; 82040; 82803; 82962; 85025; 96360; 96361; 96372; 99284; J7030

== ENCOUNTER 2016-08-16 04:52 | Inpatient (IN) | payer MEDICAID ==
[~2016-08-16] VITALS: Ht 182.9 cm; Wt 73.0 kg
[2016-08-16] MEDS ORDERED: ONDANSETRON 2MG/ML, 2ML ONE (05:16)
[2016-08-16] MEDS ORDERED: SODIUM CHLORIDE 0.9% 1,000ML IVBOLUS ONE ×2 (05:30→06:30)
[2016-08-16] MEDS ORDERED: SODIUM CHLORIDE FLUSH 10ML SYR IVF ONE (05:30)
[2016-08-16] MEDS ORDERED: ONDANSETRON 2MG/ML, 2ML IVPush ONE (05:30)
[2016-08-16 05:56] LABS: ASPARTATE AMINO TRANSFERASE 13 U/L (15-37); BLOOD UREA NITROGEN 19 mg/dL (7-18)
[2016-08-16] MEDS ORDERED: REGULAR INSULIN 62.5 UNITS in SODIUM CHLORIDE 0.9% 249.375 ML IV SCH (06:12)
[2016-08-16] MEDS ORDERED: CLINDAMYCIN PMX 900MG/50ML 50 ML ONE (06:24)
[2016-08-16] MEDS ORDERED: CLINDAMYCIN PMX 900MG/50ML 50 ML IV ONE (06:30)
[2016-08-16] MEDS ORDERED: INSULIN REGULAR 100 UNITS/ML, 3ML VIAL IVPush ONE (06:30)
[2016-08-16] MEDS ORDERED: BACITRACIN ZINC OINT 500U/GM, 0.9 GM ONE (06:59)
[2016-08-16] MEDS ORDERED: INSULIN REGULAR 100 UNITS/ML, 3ML VIAL ONE (06:59)
[2016-08-16] MEDS ORDERED: BACITRACIN ZINC OINT 500U/GM, 0.9 GM TP ONE (07:00)
[2016-08-16] MEDS ORDERED: SODIUM CHLORIDE 0.9% 1,000 ML IV SCH (07:32)
[2016-08-16] MEDS ORDERED: ONDANSETRON 2MG/ML, 2ML IVPush PRN (08:00)
[2016-08-16] MEDS ORDERED: POLYETHYLENE GLYCOL 17 GM PACKET PO PRN (08:00)
[2016-08-16] MEDS ORDERED: OXYcodone IR 5MG TABLET PO PRN (08:00)
[2016-08-16] MEDS ORDERED: ENALAPRILAT 1.25 MG/ML, 2ML IVPush PRN (08:00)
[2016-08-16] MEDS ORDERED: REGULAR INSULIN 62.5 UNITS in SODIUM CHLORIDE 0.9% 249.375 ML IV PRN (09:00)
[2016-08-16] MEDS: SENNA/DOCUSATE TABLET PO SCH ×2 (09:00→12:09)
[2016-08-16] MEDS ORDERED: MAALOX/HYOSCYAMINE/LIDOCAINE 45 ML BOTTLE PO ONE (09:30)
[2016-08-16 09:39] LABS: BLOOD UREA NITROGEN 14 mg/dL (7-18)
[2016-08-16] MEDS ORDERED: INSULIN DETEMIR 100 UNITS/ML, PEN SQ-INSULIN SCH ×2 (10:00→22:00)
[2016-08-16 11:00] VITALS: BP 106/73
[2016-08-16] MEDS ORDERED: BACITRACIN ZINC OINT 500U/GM, 0.9 GM TP SCH (11:00)
[2016-08-16] MEDS: RIVAROXABAN 15 MG TABLET PO SCH (11:38)
[2016-08-16] MEDS: INSULIN ASPART 100 UNITS/ML, PEN SQ-INSULIN SCH ×3 (11:45→21:42)
[2016-08-16] MEDS: ASPIRIN 81 MG TABLET EC PO SCH (12:09)
[2016-08-16] MEDS: BACITRACIN OINT 500U/GM, 15 GM TP SCH ×2 (12:09→21:42)
[2016-08-16 13:42] VITALS: BP 114/71
[2016-08-16] MEDS ORDERED: INSULIN ASPART 100 UNITS/ML, PEN SQ-INSULIN SCH (17:30)
[2016-08-16 19:39] VITALS: BP 111/65
[2016-08-17] MEDS ORDERED: DEXTROSE 50%, 50ML SYRINGE ONE (00:24)
[2016-08-17] MEDS ORDERED: GLUCAGON 1 MG IM PRN (00:30)
[2016-08-17] MEDS ORDERED: DEXTROSE 4 GM TAB.CHEW PO PRN (00:30)
[2016-08-17 00:31] VITALS: BP 116/67
[2016-08-17] MEDS: DEXTROSE 50%, 50ML SYRINGE IVPush PRN ×4 (00:33→18:03)
[2016-08-17 01:45] VITALS: BP 107/65
[2016-08-17] MEDS ORDERED: SODIUM CHLORIDE NASAL SPRAY 45ML BOTTLE NAS PRN (02:30)
[2016-08-17] MEDS: D5%-0.45% NACL 1,000 ML IV SCH ×2 (02:40→09:24)
[2016-08-17 04:00] VITALS: BP 125/60
[2016-08-17 05:35] LABS: ASPARTATE AMINO TRANSFERASE 14 U/L (15-37); BLOOD UREA NITROGEN 17 mg/dL (7-18)
[2016-08-17] MEDS: INSULIN ASPART 100 UNITS/ML, PEN SQ-INSULIN SCH ×4 (07:00→19:40)
[2016-08-17 07:24] VITALS: BP 125/75
[2016-08-17] MEDS ORDERED: SODIUM CHLORIDE 0.9% 1,000 ML IV SCH (07:32)
[2016-08-17] MEDS: SENNA/DOCUSATE TABLET PO SCH (09:00)
[2016-08-17] MEDS: RIVAROXABAN 15 MG TABLET PO SCH (09:22)
[2016-08-17] MEDS: ASPIRIN 81 MG TABLET EC PO SCH (09:22)
[2016-08-17] MEDS: SODIUM CHLORIDE FLUSH 10ML SYR IVF SCH ×2 (09:22→19:41)
[2016-08-17] MEDS: BACITRACIN OINT 500U/GM, 15 GM TP SCH ×2 (09:23→19:41)
[2016-08-17 14:58] VITALS: BP 131/83
[2016-08-17 20:21] VITALS: BP 112/69
[2016-08-18 02:23] VITALS: BP 112/66
[2016-08-18] MEDS: INSULIN ASPART 100 UNITS/ML, PEN SQ-INSULIN SCH ×4 (05:15→21:18)
[2016-08-18 07:02] VITALS: BP 97/63
[2016-08-18] MEDS: SENNA/DOCUSATE TABLET PO SCH (09:00)
[2016-08-18] MEDS: BACITRACIN OINT 500U/GM, 15 GM TP SCH ×2 (09:00→21:19)
[2016-08-18] MEDS: SODIUM CHLORIDE FLUSH 10ML SYR IVF SCH ×2 (09:27→21:17)
[2016-08-18] MEDS: RIVAROXABAN 15 MG TABLET PO SCH (09:27)
[2016-08-18] MEDS: ASPIRIN 81 MG TABLET EC PO SCH (09:27)
[2016-08-18] MEDS ORDERED: INSULIN ASPART 100 UNITS/ML, PEN SQ-INSULIN ONE (09:30)
[2016-08-18 12:33] VITALS: BP 103/69
[2016-08-18 12:53] LABS: BLOOD UREA NITROGEN 20 mg/dL (7-18)
[2016-08-18 20:37] VITALS: BP 119/77
[2016-08-19 00:37] VITALS: BP 146/88
[2016-08-19 06:16] LABS: BLOOD UREA NITROGEN 20 mg/dL (7-18)
[2016-08-19 08:25] VITALS: BP 147/85
[2016-08-19] MEDS: INSULIN ASPART 100 UNITS/ML, PEN SQ-INSULIN SCH ×4 (08:42→21:42)
[2016-08-19] MEDS: SENNA/DOCUSATE TABLET PO SCH (10:20)
[2016-08-19] MEDS: SODIUM CHLORIDE FLUSH 10ML SYR IVF SCH ×2 (10:20→21:41)
[2016-08-19] MEDS: BACITRACIN OINT 500U/GM, 15 GM TP SCH ×2 (10:20→21:42)
[2016-08-19] MEDS: ASPIRIN 81 MG TABLET EC PO SCH (10:20)
[2016-08-19] MEDS: RIVAROXABAN 15 MG TABLET PO SCH (10:20)
[2016-08-19] MEDS: INSULIN DETEMIR 100 UNITS/ML, PEN SQ-INSULIN SCH (14:26)
[2016-08-19 14:38] VITALS: BP 118/69
[2016-08-19 20:00] VITALS: BP 117/77
[2016-08-20 02:00] VITALS: BP 128/81
[2016-08-20] MEDS: INSULIN DETEMIR 100 UNITS/ML, PEN SQ-INSULIN SCH ×2 (04:34→17:30)
[2016-08-20 06:31] LABS: BLOOD UREA NITROGEN 23 mg/dL (7-18)
[2016-08-20 07:55] VITALS: BP 121/71
[2016-08-20] MEDS: INSULIN ASPART 100 UNITS/ML, PEN SQ-INSULIN SCH ×4 (08:43→20:50)
[2016-08-20] MEDS: SODIUM CHLORIDE FLUSH 10ML SYR IVF SCH ×2 (08:44→20:51)
[2016-08-20] MEDS: ASPIRIN 81 MG TABLET EC PO SCH (08:44)
[2016-08-20] MEDS: SENNA/DOCUSATE TABLET PO SCH (08:44)
[2016-08-20] MEDS: BACITRACIN OINT 500U/GM, 15 GM TP SCH ×2 (08:44→20:51)
[2016-08-20] MEDS: RIVAROXABAN 15 MG TABLET PO SCH (08:44)
[2016-08-20] MEDS ORDERED: INSULIN DETEMIR 100 UNITS/ML, PEN SQ-INSULIN ONE (11:00)
[2016-08-20 16:12] VITALS: BP 121/75
[2016-08-20 20:00] VITALS: BP 112/70
[2016-08-21 02:00] VITALS: BP 109/63
[2016-08-21 05:43] LABS: BLOOD UREA NITROGEN 21 mg/dL (7-18)
[2016-08-21 05:46] LABS: ASPARTATE AMINO TRANSFERASE 37 U/L (15-37)
[2016-08-21 07:21] VITALS: BP 114/74
[2016-08-21] MEDS: SODIUM CHLORIDE FLUSH 10ML SYR IVF SCH ×2 (08:28→20:45)
[2016-08-21] MEDS: INSULIN DETEMIR 100 UNITS/ML, PEN SQ-INSULIN SCH (08:29)
[2016-08-21] MEDS: INSULIN ASPART 100 UNITS/ML, PEN SQ-INSULIN SCH ×4 (08:29→20:45)
[2016-08-21] MEDS: RIVAROXABAN 15 MG TABLET PO SCH (08:30)
[2016-08-21] MEDS: ASPIRIN 81 MG TABLET EC PO SCH (08:30)
[2016-08-21] MEDS: SENNA/DOCUSATE TABLET PO SCH (08:31)
[2016-08-21] MEDS: BACITRACIN OINT 500U/GM, 15 GM TP SCH ×2 (11:58→20:44)
[2016-08-21 14:18] VITALS: BP 102/65
[2016-08-21 20:00] VITALS: BP 119/73
[2016-08-22 02:00] VITALS: BP 148/82
[2016-08-22 06:16] LABS: ASPARTATE AMINO TRANSFERASE 62 U/L (15-37); BLOOD UREA NITROGEN 26 mg/dL (7-18)
[2016-08-22 06:51] VITALS: BP 142/84
[2016-08-22] MEDS: INSULIN ASPART 100 UNITS/ML, PEN SQ-INSULIN SCH ×4 (08:10→20:14)
[2016-08-22] MEDS: INSULIN DETEMIR 100 UNITS/ML, PEN SQ-INSULIN SCH ×2 (08:12→17:50)
[2016-08-22] MEDS: SENNA/DOCUSATE TABLET PO SCH (08:14)
[2016-08-22] MEDS: ASPIRIN 81 MG TABLET EC PO SCH (08:14)
[2016-08-22] MEDS: RIVAROXABAN 15 MG TABLET PO SCH (08:16)
[2016-08-22] MEDS: SODIUM CHLORIDE FLUSH 10ML SYR IVF SCH ×2 (08:18→21:28)
[2016-08-22] MEDS: BACITRACIN OINT 500U/GM, 15 GM TP SCH ×2 (09:00→21:28)
[2016-08-22] MEDS: AMOXICILLIN/CLAV 875-125MG TABLET PO SCH ×2 (13:00→21:28)
[2016-08-22 13:10] VITALS: BP 116/72
[2016-08-22 19:16] VITALS: BP 129/79
[2016-08-22] MEDS ORDERED: INSULIN ASPART 100 UNITS/ML, PEN SQ-INSULIN ONE (20:19)
[2016-08-23 02:16] VITALS: BP 106/64
[2016-08-23 06:04] LABS: BLOOD UREA NITROGEN 26 mg/dL (7-18)
[2016-08-23 08:01] VITALS: BP 98/64
[2016-08-23] MEDS: INSULIN DETEMIR 100 UNITS/ML, PEN SQ-INSULIN SCH ×2 (08:37→17:40)
[2016-08-23] MEDS: INSULIN ASPART 100 UNITS/ML, PEN SQ-INSULIN SCH ×5 (08:38→21:00)
[2016-08-23] MEDS: ASPIRIN 81 MG TABLET EC PO SCH (08:39)
[2016-08-23] MEDS: RIVAROXABAN 15 MG TABLET PO SCH (08:39)
[2016-08-23] MEDS: SODIUM CHLORIDE FLUSH 10ML SYR IVF SCH ×2 (08:39→21:19)
[2016-08-23] MEDS: SENNA/DOCUSATE TABLET PO SCH (08:40)
[2016-08-23] MEDS: BACITRACIN OINT 500U/GM, 15 GM TP SCH ×2 (08:41→21:00)
[2016-08-23] MEDS: AMOXICILLIN/CLAV 875-125MG TABLET PO SCH ×2 (11:30→21:19)
[2016-08-23 14:58] VITALS: BP 115/71
[2016-08-23 18:33] VITALS: BP 114/69
[2016-08-23] MEDS: ACETAMINOPHEN 325 MG TABLET PO PRN (18:33)
[2016-08-23] MEDS ORDERED: INSULIN ASPART 100 UNITS/ML, PEN SQ-INSULIN ONE (19:00)
[2016-08-23] MEDS ORDERED: DIPHENHYDRAMINE 25 MG CAPSULE PO ONE (23:30)
[2016-08-23] MEDS ORDERED: DIPHENHYDRAMINE 25 MG CAPSULE ONE (23:37)
[2016-08-24 01:34] VITALS: BP 127/79
[2016-08-24] MEDS ORDERED: INSULIN ASPART 100 UNITS/ML, PEN SQ-INSULIN SCH (05:00)
[2016-08-24] MEDS: INSULIN DETEMIR 100 UNITS/ML, PEN SQ-INSULIN SCH ×2 (05:03→16:49)
[2016-08-24 05:26] LABS: BLOOD UREA NITROGEN 31 mg/dL (7-18)
[2016-08-24] MEDS: INSULIN ASPART 100 UNITS/ML, PEN SQ-INSULIN SCH ×5 (06:03→21:18)
[2016-08-24 08:09] VITALS: BP 92/58
[2016-08-24] MEDS: ASPIRIN 81 MG TABLET EC PO SCH (08:48)
[2016-08-24] MEDS: SENNA/DOCUSATE TABLET PO SCH (08:48)
[2016-08-24] MEDS: RIVAROXABAN 15 MG TABLET PO SCH (08:48)
[2016-08-24] MEDS: BACITRACIN OINT 500U/GM, 15 GM TP SCH ×2 (08:49→21:18)
[2016-08-24] MEDS: SODIUM CHLORIDE FLUSH 10ML SYR IVF SCH ×2 (08:49→21:17)
[2016-08-24] MEDS: AMOXICILLIN/CLAV 875-125MG TABLET PO SCH ×2 (10:35→21:18)
[2016-08-24 13:51] VITALS: BP 105/62
[2016-08-24 18:50] VITALS: BP 111/74
[2016-08-25 01:18] VITALS: BP 98/62
[2016-08-25] MEDS: INSULIN DETEMIR 100 UNITS/ML, PEN SQ-INSULIN SCH (04:55)
[2016-08-25] MEDS ORDERED: INSULIN ASPART 100 UNITS/ML, PEN SQ-INSULIN ONE (05:00)
[2016-08-25 06:59] VITALS: BP 104/66
[2016-08-25] MEDS: INSULIN ASPART 100 UNITS/ML, PEN SQ-INSULIN SCH ×5 (07:00→21:02)
[2016-08-25] MEDS: SENNA/DOCUSATE TABLET PO SCH (08:25)
[2016-08-25] MEDS: ASPIRIN 81 MG TABLET EC PO SCH (09:08)
[2016-08-25] MEDS: RIVAROXABAN 15 MG TABLET PO SCH (09:08)
[2016-08-25] MEDS: SODIUM CHLORIDE FLUSH 10ML SYR IVF SCH ×2 (09:08→20:36)
[2016-08-25] MEDS: AMOXICILLIN/CLAV 875-125MG TABLET PO SCH ×2 (09:08→21:01)
[2016-08-25] MEDS: BACITRACIN OINT 500U/GM, 15 GM TP SCH ×2 (09:09→20:36)
[2016-08-25 13:26] VITALS: BP 130/71
[2016-08-25] MEDS ORDERED: INSULIN DETEMIR 100 UNITS/ML, PEN SQ-INSULIN SCH (17:00)
[2016-08-25 18:39] VITALS: BP 120/74
[2016-08-25 20:44] LABS: BLOOD UREA NITROGEN 21 mg/dL (7-18)
[2016-08-25] MEDS: ACETAMINOPHEN 325 MG TABLET PO PRN (21:01)
[2016-08-26] MEDS: INSULIN ASPART 100 UNITS/ML, PEN SQ-INSULIN SCH ×6 (00:05→18:49)
[2016-08-26 00:50] VITALS: BP 123/76
[2016-08-26 05:43] LABS: BLOOD UREA NITROGEN 21 mg/dL (7-18)
[2016-08-26 07:30] VITALS: BP 114/78
[2016-08-26] MEDS: BACITRACIN OINT 500U/GM, 15 GM TP SCH ×2 (09:00→21:15)
[2016-08-26] MEDS: SENNA/DOCUSATE TABLET PO SCH (09:00)
[2016-08-26] MEDS: ASPIRIN 81 MG TABLET EC PO SCH (09:29)
[2016-08-26] MEDS: AMOXICILLIN/CLAV 875-125MG TABLET PO SCH ×2 (09:29→21:15)
[2016-08-26] MEDS: SODIUM CHLORIDE FLUSH 10ML SYR IVF SCH ×2 (09:29→21:16)
[2016-08-26] MEDS: RIVAROXABAN 15 MG TABLET PO SCH (09:30)
[2016-08-26] MEDS: INSULIN DETEMIR 100 UNITS/ML, PEN SQ-INSULIN SCH (11:28)
[2016-08-26 12:12] VITALS: BP 137/78
[2016-08-26 20:00] VITALS: BP 123/75
[2016-08-27] MEDS: INSULIN ASPART 100 UNITS/ML, PEN SQ-INSULIN SCH ×7 (01:06→20:58)
[2016-08-27 02:00] VITALS: BP 133/81
[2016-08-27 06:48] VITALS: BP 120/77
[2016-08-27] MEDS: SENNA/DOCUSATE TABLET PO SCH (09:00)
[2016-08-27] MEDS: AMOXICILLIN/CLAV 875-125MG TABLET PO SCH ×2 (09:25→20:57)
[2016-08-27] MEDS: ASPIRIN 81 MG TABLET EC PO SCH (09:25)
[2016-08-27] MEDS: BACITRACIN OINT 500U/GM, 15 GM TP SCH ×2 (09:26→20:57)
[2016-08-27] MEDS: SODIUM CHLORIDE FLUSH 10ML SYR IVF SCH ×2 (09:26→20:57)
[2016-08-27] MEDS: RIVAROXABAN 15 MG TABLET PO SCH (09:26)
[2016-08-27] MEDS: INSULIN DETEMIR 100 UNITS/ML, PEN SQ-INSULIN SCH ×2 (09:27→17:43)
[2016-08-27] MEDS ORDERED: INSULIN ASPART 100 UNITS/ML, PEN SQ-INSULIN ONE (14:30)
[2016-08-27 14:56] VITALS: BP 118/75
[2016-08-27 15:37] VITALS: BP 146/66
[2016-08-27 20:00] VITALS: BP 146/82
[2016-08-28 02:00] VITALS: BP 111/69
[2016-08-28] MEDS: INSULIN DETEMIR 100 UNITS/ML, PEN SQ-INSULIN SCH ×2 (05:20→17:31)
[2016-08-28 06:46] VITALS: BP 96/64
[2016-08-28] MEDS: SODIUM CHLORIDE FLUSH 10ML SYR IVF SCH ×2 (07:50→20:55)
[2016-08-28] MEDS: ASPIRIN 81 MG TABLET EC PO SCH (07:50)
[2016-08-28] MEDS: AMOXICILLIN/CLAV 875-125MG TABLET PO SCH ×2 (07:50→20:56)
[2016-08-28] MEDS: BACITRACIN OINT 500U/GM, 15 GM TP SCH ×2 (07:50→20:56)
[2016-08-28] MEDS: INSULIN ASPART 100 UNITS/ML, PEN SQ-INSULIN SCH ×4 (07:50→20:56)
[2016-08-28] MEDS: RIVAROXABAN 15 MG TABLET PO SCH (07:50)
[2016-08-28] MEDS: SENNA/DOCUSATE TABLET PO SCH (07:51)
[2016-08-28 14:05] VITALS: BP 116/71
[2016-08-28 20:00] VITALS: BP 127/76
[2016-08-29 02:00] VITALS: BP 107/67
[2016-08-29] MEDS: INSULIN DETEMIR 100 UNITS/ML, PEN SQ-INSULIN SCH ×2 (05:13→17:41)
[2016-08-29 07:35] VITALS: BP 120/80
[2016-08-29] MEDS: INSULIN ASPART 100 UNITS/ML, PEN SQ-INSULIN SCH ×4 (08:34→21:13)
[2016-08-29] MEDS: SODIUM CHLORIDE FLUSH 10ML SYR IVF SCH ×2 (08:35→21:15)
[2016-08-29] MEDS: ASPIRIN 81 MG TABLET EC PO SCH (08:39)
[2016-08-29] MEDS: AMOXICILLIN/CLAV 875-125MG TABLET PO SCH ×2 (08:39→21:13)
[2016-08-29] MEDS: RIVAROXABAN 15 MG TABLET PO SCH (08:39)
[2016-08-29] MEDS: SENNA/DOCUSATE TABLET PO SCH (08:39)
[2016-08-29] MEDS: BACITRACIN OINT 500U/GM, 15 GM TP SCH ×2 (08:40→21:13)
[2016-08-29 12:43] VITALS: BP 124/76
[2016-08-29 19:38] VITALS: BP 130/74
[2016-08-30 00:52] VITALS: BP 148/86
[2016-08-30] MEDS: INSULIN ASPART 100 UNITS/ML, PEN SQ-INSULIN SCH ×4 (05:41→21:40)
[2016-08-30] MEDS: INSULIN DETEMIR 100 UNITS/ML, PEN SQ-INSULIN SCH ×2 (05:41→17:44)
[2016-08-30 07:01] VITALS: BP 91/56
[2016-08-30 07:54] VITALS: BP 110/74
[2016-08-30] MEDS: SODIUM CHLORIDE FLUSH 10ML SYR IVF SCH ×2 (09:00→21:37)
[2016-08-30] MEDS: SENNA/DOCUSATE TABLET PO SCH (09:00)
[2016-08-30] MEDS: ASPIRIN 81 MG TABLET EC PO SCH (09:40)
[2016-08-30] MEDS: BACITRACIN OINT 500U/GM, 15 GM TP SCH ×2 (09:41→21:38)
[2016-08-30] MEDS: RIVAROXABAN 15 MG TABLET PO SCH (09:41)
[2016-08-30 12:52] VITALS: BP 106/65
[2016-08-30 19:10] VITALS: BP 130/73
[2016-08-31 01:30] VITALS: BP 114/75
[2016-08-31 06:56] VITALS: BP 95/61
[2016-08-31] MEDS: INSULIN ASPART 100 UNITS/ML, PEN SQ-INSULIN SCH ×4 (07:00→20:48)
[2016-08-31] MEDS: SENNA/DOCUSATE TABLET PO SCH (09:00)
[2016-08-31] MEDS: SODIUM CHLORIDE FLUSH 10ML SYR IVF SCH ×2 (09:00→20:47)
[2016-08-31] MEDS: INSULIN DETEMIR 100 UNITS/ML, PEN SQ-INSULIN SCH ×2 (09:21→20:48)
[2016-08-31] MEDS: RIVAROXABAN 15 MG TABLET PO SCH (09:21)
[2016-08-31] MEDS: ASPIRIN 81 MG TABLET EC PO SCH (09:21)
[2016-08-31] MEDS: BACITRACIN OINT 500U/GM, 15 GM TP SCH ×2 (09:22→20:48)
[2016-08-31 12:45] VITALS: BP 123/66
[2016-08-31] MEDS: ACETAMINOPHEN 325 MG TABLET PO PRN (14:06)
[2016-08-31 19:30] VITALS: BP 119/76
[2016-09-01 01:00] VITALS: BP 130/82
[2016-09-01 06:46] VITALS: BP 99/64
[2016-09-01] MEDS: INSULIN ASPART 100 UNITS/ML, PEN SQ-INSULIN SCH ×4 (08:19→20:47)
[2016-09-01] MEDS: RIVAROXABAN 15 MG TABLET PO SCH (08:20)
[2016-09-01] MEDS: SENNA/DOCUSATE TABLET PO SCH (08:20)
[2016-09-01] MEDS: INSULIN DETEMIR 100 UNITS/ML, PEN SQ-INSULIN SCH ×2 (08:20→20:48)
[2016-09-01] MEDS: ASPIRIN 81 MG TABLET EC PO SCH (08:20)
[2016-09-01] MEDS: BACITRACIN OINT 500U/GM, 15 GM TP SCH ×2 (08:22→20:46)
[2016-09-01] MEDS: SODIUM CHLORIDE FLUSH 10ML SYR IVF SCH ×2 (08:22→20:48)
[2016-09-01 12:42] VITALS: BP 122/78
[2016-09-01 19:15] VITALS: BP 127/78
[2016-09-02 02:00] VITALS: BP 130/81
[2016-09-02] MEDS ORDERED: TRAZODONE 50MG TABLET PO PRN (02:00)
[2016-09-02 07:25] VITALS: BP 98/63
[2016-09-02] MEDS: INSULIN DETEMIR 100 UNITS/ML, PEN SQ-INSULIN SCH ×2 (08:07→16:44)
[2016-09-02] MEDS: SENNA/DOCUSATE TABLET PO SCH (08:08)
[2016-09-02] MEDS: RIVAROXABAN 15 MG TABLET PO SCH (08:08)
[2016-09-02] MEDS: ASPIRIN 81 MG TABLET EC PO SCH (08:08)
[2016-09-02] MEDS: SODIUM CHLORIDE FLUSH 10ML SYR IVF SCH ×2 (08:08→20:45)
[2016-09-02] MEDS: BACITRACIN OINT 500U/GM, 15 GM TP SCH ×2 (08:08→20:45)
[2016-09-02] MEDS: INSULIN ASPART 100 UNITS/ML, PEN SQ-INSULIN SCH ×4 (08:08→20:46)
[2016-09-02 12:18] VITALS: BP 135/81
[2016-09-02 18:36] VITALS: BP 106/71
[2016-09-02 19:35] VITALS: BP 110/74
[2016-09-03 01:42] VITALS: BP 113/73
[2016-09-03] MEDS: INSULIN DETEMIR 100 UNITS/ML, PEN SQ-INSULIN SCH (05:03)
[2016-09-03 08:00] VITALS: BP 123/79
[2016-09-03] MEDS ORDERED: SIMV20TA3 PO (08:57)
[2016-09-03] MEDS: BACITRACIN OINT 500U/GM, 15 GM TP SCH (09:00)
[2016-09-03] MEDS: SODIUM CHLORIDE FLUSH 10ML SYR IVF SCH (09:00)
[2016-09-03] MEDS: ASPIRIN 81 MG TABLET EC PO SCH (10:21)
[2016-09-03] MEDS: RIVAROXABAN 15 MG TABLET PO SCH (10:21)
[2016-09-03] MEDS: INSULIN ASPART 100 UNITS/ML, PEN SQ-INSULIN SCH ×2 (10:21→12:38)
[2016-09-03] MEDS: SENNA/DOCUSATE TABLET PO SCH (10:21)
== END 2016-09-03 13:00 | disposition home health service (06) | DRG 637 ==
LOC: ED 05:07 → EDIP 06:21 → CCU 08:14 → 4EST 13:21
PROVIDERS: ADMIT Internal Medicine
DX: E10.10 Type 1 diabetes mellitus with ketoacidosis without coma (principal); N17.0 Acute kidney failure with tubular necrosis; E87.1 Hypo-osmolality and hyponatremia; L97.419 Non-pressure chronic ulcer of right heel and midfoot with unspecified severity; L97.429 Non-pressure chronic ulcer of left heel and midfoot with unspecified severity; R81 Glycosuria; E78.5 Hyperlipidemia, unspecified; I48.91 Unspecified atrial fibrillation; I10 Essential (primary) hypertension; E86.0 Dehydration; D47.3 Essential (hemorrhagic) thrombocythemia; F17.220 Nicotine dependence, chewing tobacco, uncomplicated; E10.621 Type 1 diabetes mellitus with foot ulcer; E10.649 Type 1 diabetes mellitus with hypoglycemia without coma; D64.9 Anemia, unspecified; F10.21 Alcohol dependence, in remission; D75.89 Other specified diseases of blood and blood-forming organs; Z82.49 Family history of ischemic heart disease and other diseases of the circulatory system; Z79.01 Long term (current) use of anticoagulants; Z91.19 Patient's noncompliance with other medical treatment and regimen; I69.318 Other symptoms and signs involving cognitive functions following cerebral infarction; Z79.82 Long term (current) use of aspirin; Z79.4 Long term (current) use of insulin
CPT/HCPCS: 36415; 71010; 80048; 80053; 81001; 82010; 82803; 82947; 82962; 83036; 83735; 84100; 85025; 86480; 87070; 87077; 87081; 87147; 87186; 87205; 93005; 96372; 96374; J1815; J2405; 92523-GN; J7030; J7050; Q0163

== ENCOUNTER 2016-09-25 13:02 | Emergency (ER) | payer MEDICAID ==
[~2016-09-25] VITALS: Ht 182.9 cm; Wt 74.0 kg
[~2016-09-25 13:02] MED LIST changes: +SIMV20TA3 PO
[2016-09-25] MEDS ORDERED: SODIUM CHLORIDE 0.9% 1,000ML IVBOLUS ONE (13:30)
[2016-09-25] MEDS ORDERED: SODIUM CHLORIDE FLUSH 10ML SYR IVF ONE (13:30)
[2016-09-25 13:36] LABS: ASPARTATE AMINO TRANSFERASE 13 U/L (15-37); BLOOD UREA NITROGEN 14 mg/dL (7-18)
[2016-09-25] MEDS ORDERED: INSULIN REGULAR 100 UNITS/ML, 3ML VIAL IVPush ONE (14:00)
[2016-09-25] MEDS ORDERED: INSULIN REGULAR 100 UNITS/ML, 3ML VIAL ONE (14:07)
[2016-09-25 14:32] VITALS: BP 136/68
== END 2016-09-25 16:53 | disposition home or self-care (01) ==
LOC: ED 13:38
DX: E11.65 Type 2 diabetes mellitus with hyperglycemia (principal); I10 Essential (primary) hypertension; I48.91 Unspecified atrial fibrillation; Z86.73 Personal history of transient ischemic attack (TIA), and cerebral infarction without residual deficits
CPT/HCPCS: 36415; 71010; 80053; 81003; 82962; 83605; 83690; 85025; 96361; 96374; 99285; J7030

== ENCOUNTER 2016-09-26 12:44 | Inpatient (IN) | payer MEDICAID ==
[~2016-09-26] VITALS: Ht 182.9 cm; Wt 71.8 kg
[2016-09-26] MEDS ORDERED: SODIUM CHLORIDE 0.9% 1,000ML IVBOLUS ONE (13:00)
[2016-09-26 13:42] LABS: ASPARTATE AMINO TRANSFERASE 13 U/L (15-37); BLOOD UREA NITROGEN 13 mg/dL (7-18)
[2016-09-26] MEDS ORDERED: INSULIN SINGLE DOSE, ER SQ-INSULIN ONE (14:13)
[2016-09-26] MEDS ORDERED: INSULIN REGULAR 100 UNITS/ML, 3ML VIAL SQ-INSULIN ONE (14:30)
[2016-09-26] MEDS ORDERED: SODIUM CHLORIDE FLUSH 10ML SYR IVF PRN (15:00)
[2016-09-26] MEDS ORDERED: POLYETHYLENE GLYCOL 17 GM PACKET PO PRN (15:30)
[2016-09-26] MEDS ORDERED: DOCUSATE 100 MG CAPSULE PO PRN (15:30)
[2016-09-26] MEDS ORDERED: ENALAPRILAT 1.25 MG/ML, 2ML IVPush PRN (15:30)
[2016-09-26] MEDS ORDERED: ONDANSETRON ODT 4 MG PO PRN (15:30)
[2016-09-26] MEDS ORDERED: ONDANSETRON 2MG/ML, 2ML IVPush PRN (15:30)
[2016-09-26] MEDS ORDERED: GLUCAGON 1 MG IM PRN (15:30)
[2016-09-26] MEDS ORDERED: DEXTROSE 4 GM TAB.CHEW PO PRN (15:30)
[2016-09-26] MEDS ORDERED: BISACODYL 10 MG SUPP PR PRN (15:30)
[2016-09-26] MEDS ORDERED: DEXTROSE 50%, 50ML SYRINGE IVPush PRN (15:30)
[2016-09-26] MEDS ORDERED: ACETAMINOPHEN 325 MG TABLET PO PRN (15:30)
[2016-09-26] MEDS: INSULIN DETEMIR 100 UNITS/ML, PEN SQ-INSULIN SCH ×2 (16:30→21:25)
[2016-09-26] MEDS: INSULIN ASPART 100 UNITS/ML, PEN SQ-INSULIN SCH ×2 (17:07→20:54)
[2016-09-26 17:39] VITALS: BP 136/83
[2016-09-26] MEDS ORDERED: AMOXICILLIN/CLAV 875-125MG TABLET PO SCH (18:00)
[2016-09-26 19:02] VITALS: BP 107/70
[2016-09-26] MEDS: POTASSIUM CHLORIDE 10 MEQ in SODIUM CHLORIDE 0.9% 1,000 ML IV SCH (20:03)
[2016-09-26] MEDS: SODIUM CHLORIDE FLUSH 10ML SYR IVF SCH (20:50)
[2016-09-26] MEDS: LACTOBACILLUS CHEW TABLET PO SCH ×2 (21:00→21:25)
[2016-09-26] MEDS: SIMVASTATIN 20 MG TABLET PO SCH (21:24)
[2016-09-27 01:25] VITALS: BP 123/78
[2016-09-27 05:32] LABS: BLOOD UREA NITROGEN 12 mg/dL (7-18)
[2016-09-27] MEDS: INSULIN ASPART 100 UNITS/ML, PEN SQ-INSULIN SCH ×4 (06:01→21:52)
[2016-09-27] MEDS: POTASSIUM CHLORIDE 10 MEQ in SODIUM CHLORIDE 0.9% 1,000 ML IV SCH ×2 (06:01→16:04)
[2016-09-27 08:00] VITALS: BP 124/79
[2016-09-27] MEDS: SODIUM CHLORIDE FLUSH 10ML SYR IVF SCH ×2 (08:45→21:51)
[2016-09-27] MEDS: LACTOBACILLUS CHEW TABLET PO SCH ×3 (08:46→21:50)
[2016-09-27] MEDS: ASPIRIN 81 MG TABLET EC PO SCH (08:46)
[2016-09-27] MEDS: AMOXICILLIN/CLAV 875-125MG TABLET PO SCH ×2 (08:46→21:51)
[2016-09-27] MEDS: RIVAROXABAN 15 MG TABLET PO SCH (08:46)
[2016-09-27] MEDS: INSULIN DETEMIR 100 UNITS/ML, PEN SQ-INSULIN SCH ×2 (11:28→21:52)
[2016-09-27 14:50] VITALS: BP 125/78
[2016-09-27 21:46] VITALS: BP 124/74
[2016-09-27] MEDS: SIMVASTATIN 20 MG TABLET PO SCH (21:50)
[2016-09-28] MEDS: POTASSIUM CHLORIDE 10 MEQ in SODIUM CHLORIDE 0.9% 1,000 ML IV SCH ×2 (02:09→12:12)
[2016-09-28] MEDS: INSULIN ASPART 100 UNITS/ML, PEN SQ-INSULIN SCH ×2 (07:00→11:00)
[2016-09-28 07:30] VITALS: BP 116/73
[2016-09-28] MEDS: INSULIN DETEMIR 100 UNITS/ML, PEN SQ-INSULIN SCH (08:33)
[2016-09-28] MEDS: ASPIRIN 81 MG TABLET EC PO SCH (08:42)
[2016-09-28] MEDS: SODIUM CHLORIDE FLUSH 10ML SYR IVF SCH (08:42)
[2016-09-28] MEDS: LACTOBACILLUS CHEW TABLET PO SCH (08:42)
[2016-09-28] MEDS: RIVAROXABAN 15 MG TABLET PO SCH (08:42)
[2016-09-28] MEDS: AMOXICILLIN/CLAV 875-125MG TABLET PO SCH ×2 (08:42→08:47)
[2016-09-28 14:01] VITALS: BP 98/57
== END 2016-09-28 14:15 | disposition left against medical advice (07) | DRG 638 ==
LOC: ED 13:04 → EDIP 14:45 → 4NOR 17:33
PROVIDERS: ADMIT Internal Medicine; ATTEND Internal Medicine
DX: E10.65 Type 1 diabetes mellitus with hyperglycemia (principal); D68.69 Other thrombophilia; E10.22 Type 1 diabetes mellitus with diabetic chronic kidney disease; E78.5 Hyperlipidemia, unspecified; E86.0 Dehydration; F10.21 Alcohol dependence, in remission; I12.9 Hypertensive chronic kidney disease with stage 1 through stage 4 chronic kidney disease, or unspecified chronic kidney disease; N18.2 Chronic kidney disease, stage 2 (mild); I48.91 Unspecified atrial fibrillation; L03.031 Cellulitis of right toe; R62.7 Adult failure to thrive; E10.40 Type 1 diabetes mellitus with diabetic neuropathy, unspecified; Z53.21 Procedure and treatment not carried out due to patient leaving prior to being seen by health care provider; Z82.49 Family history of ischemic heart disease and other diseases of the circulatory system; Z91.14 Patient's other noncompliance with medication regimen; Z86.73 Personal history of transient ischemic attack (TIA), and cerebral infarction without residual deficits; Z59.0 Homelessness; Z87.891 Personal history of nicotine dependence; Z79.01 Long term (current) use of anticoagulants
CPT/HCPCS: 36415; 80048; 80053; 81003; 82010; 82803; 82962; 83690; 83735; 85025; 93005; 96361; 96374; J1815; J3480; J7030

== ENCOUNTER 2016-09-29 15:16 | Emergency (ER) | payer MEDICAID ==
[~2016-09-29] VITALS: Ht 177.8 cm; Wt 74.0 kg
[2016-09-29] MEDS ORDERED: SODIUM CHLORIDE 0.9% 1,000 ML IV ONE (15:29)
[2016-09-29] MEDS ORDERED: SODIUM CHLORIDE 0.9% 1,000ML IVBOLUS ONE ×2 (15:30→16:30)
[2016-09-29 15:57] LABS: PH, VENOUS 7.329 pH (7.320-7.420)
[2016-09-29 15:59] LABS: HEMATOCRIT 37.2 % (39.2-51.8); HEMOGLOBIN 11.6 g/dL (13.7-18.0); WHITE BLOOD COUNT 8.3 x10^3/uL (3.4-10)
[2016-09-29] MEDS ORDERED: ONDANSETRON 2MG/ML, 2ML IVPush ONE (16:00)
[2016-09-29 16:10] LABS: BLOOD UREA NITROGEN 19 mg/dL (7-18)
[2016-09-29] MEDS ORDERED: INSULIN REGULAR 100 UNITS/ML, 3ML VIAL SQ-INSULIN ONE (16:30)
[2016-09-29] MEDS ORDERED: INSULIN REGULAR 100 UNITS/ML, 3ML VIAL ONE (16:47)
[2016-09-29 18:14] LABS: BLOOD UREA NITROGEN 16 mg/dL (7-18)
[2016-09-29 18:51] VITALS: BP 148/88
== END 2016-09-29 19:02 | disposition home or self-care (01) ==
LOC: ED 18:56
DX: E86.0 Dehydration (principal); E11.65 Type 2 diabetes mellitus with hyperglycemia; I10 Essential (primary) hypertension; I48.91 Unspecified atrial fibrillation; E87.1 Hypo-osmolality and hyponatremia; Z72.9 Problem related to lifestyle, unspecified
CPT/HCPCS: 36415; 80048; 82010; 82040; 82803; 82962; 85025; 96361; 96374; 99285; J7030

== ENCOUNTER 2016-10-07 22:58 | Inpatient (IN) | payer MEDICAID ==
[~2016-10-07] VITALS: Ht 177.8 cm; Wt 73.8 kg
[~2016-10-07 22:58] MED LIST changes: +NICO1PAT13 TD; -NICO1PAT4 TD
[2016-10-08] MEDS ORDERED: DEXTROSE 50%, 50ML VIAL ONE (01:23)
[2016-10-08] MEDS ORDERED: DEXTROSE 50%, 50ML SYRINGE IVPush ONE ×2 (01:30→04:30)
[2016-10-08] MEDS ORDERED: SODIUM CHLORIDE FLUSH 10ML SYR IVF ONE (01:30)
[2016-10-08 01:58] LABS: BLOOD UREA NITROGEN 14 mg/dL (7-18)
[2016-10-08 02:32] LABS: HEMATOCRIT 36.2 % (39.2-51.8); HEMOGLOBIN 11.7 g/dL (13.7-18.0); WHITE BLOOD COUNT 9.9 x10^3/uL (3.4-10)
[2016-10-08] MEDS: D5%-0.9% NACL 1,000 ML IV SCH ×2 (03:01→09:30)
[2016-10-08] MEDS ORDERED: POTASSIUM CHLORIDE 20 MEQ TAB.ER.PRT PO ONE (04:30)
[2016-10-08] MEDS: DEXTROSE 10% 1,000 ML IV SCH ×2 (04:46→09:30)
[2016-10-08] MEDS ORDERED: ONDANSETRON 2MG/ML, 2ML IVPush PRN (05:00)
[2016-10-08] MEDS ORDERED: POLYETHYLENE GLYCOL 17 GM PACKET PO PRN (05:00)
[2016-10-08] MEDS ORDERED: POTASSIUM CHLORIDE 10 MEQ in DEXTROSE 10% 1,000 ML IV SCH (05:00)
[2016-10-08] MEDS ORDERED: DEXTROSE 4 GM TAB.CHEW PO PRN (05:00)
[2016-10-08] MEDS ORDERED: BISACODYL 10 MG SUPP PR PRN (05:00)
[2016-10-08] MEDS ORDERED: GLUCAGON 1 MG IM PRN (05:00)
[2016-10-08] MEDS ORDERED: DOCUSATE 100 MG CAPSULE PO PRN (05:00)
[2016-10-08] MEDS ORDERED: ACETAMINOPHEN 325 MG TABLET PO PRN (05:00)
[2016-10-08] MEDS ORDERED: POTASSIUM CHLORIDE 20 MEQ TAB.ER.PRT ONE (06:16)
[2016-10-08] MEDS ORDERED: ENOXAPARIN 40 MG/0.4 ML ONE (06:23)
[2016-10-08] MEDS: ENOXAPARIN 40 MG/0.4 ML SQ SCH (06:26)
[2016-10-08 07:48] LABS: FERRITIN 8.7 ng/mL (26-388)
[2016-10-08] MEDS: SODIUM CHLORIDE FLUSH 10ML SYR IVF SCH ×2 (09:30→20:23)
[2016-10-08 10:24] VITALS: BP 118/71
[2016-10-08] MEDS ORDERED: INSULIN ASPART 100 UNITS/ML, PEN SQ-INSULIN SCH (11:00)
[2016-10-08 14:06] VITALS: BP 120/76
[2016-10-08] MEDS ORDERED: INSULIN DETEMIR 100 UNITS/ML, PEN SQ-INSULIN ONE (15:30)
[2016-10-08] MEDS: INSULIN ASPART 100 UNITS/ML, PEN SQ-INSULIN SCH ×2 (16:22→20:24)
[2016-10-08 20:13] VITALS: BP 133/78
[2016-10-08] MEDS ORDERED: INSULIN DETEMIR 100 UNITS/ML, PEN SQ-INSULIN SCH (21:00)
[2016-10-08] MEDS: DEXTROSE 50%, 50ML SYRINGE IVPush PRN (23:12)
[2016-10-09 04:37] LABS: BLOOD UREA NITROGEN 19 mg/dL (7-18)
[2016-10-09 04:40] LABS: ASPARTATE AMINO TRANSFERASE 15 U/L (15-37)
[2016-10-09 04:43] LABS: HEMATOCRIT 34.1 % (39.2-51.8); HEMOGLOBIN 10.9 g/dL (13.7-18.0); WHITE BLOOD COUNT 8.2 x10^3/uL (3.4-10)
[2016-10-09 04:57] VITALS: BP 138/78
[2016-10-09] MEDS: ENOXAPARIN 40 MG/0.4 ML SQ SCH (05:00)
[2016-10-09 08:31] VITALS: BP 132/75
[2016-10-09] MEDS ORDERED: INSULIN DETEMIR 100 UNITS/ML, PEN SQ-INSULIN SCH (09:00)
[2016-10-09] MEDS: INSULIN ASPART 100 UNITS/ML, PEN SQ-INSULIN SCH ×4 (09:08→22:06)
[2016-10-09] MEDS: SODIUM CHLORIDE FLUSH 10ML SYR IVF SCH ×2 (09:09→20:00)
[2016-10-09] MEDS ORDERED: INSULIN ASPART 100 UNITS/ML, PEN SQ-INSULIN SCH (11:00)
[2016-10-09] MEDS: FERROUS GLUCONATE 324 MG TABLET PO SCH ×2 (12:18→17:43)
[2016-10-09 14:02] VITALS: BP 148/88
[2016-10-09] MEDS ORDERED: FERROUS GLUCONATE 324 MG TABLET PO SCH (17:00)
[2016-10-09 19:30] VITALS: BP 138/82
[2016-10-09] MEDS: DOCUSATE 100 MG CAPSULE PO SCH (20:00)
[2016-10-09] MEDS: INSULIN DETEMIR 100 UNITS/ML, PEN SQ-INSULIN SCH (22:06)
[2016-10-10 01:26] VITALS: BP 140/87
[2016-10-10] MEDS ORDERED: DIPHENHYDRAMINE 25 MG CAPSULE PO ONE (01:30)
[2016-10-10] MEDS: ENOXAPARIN 40 MG/0.4 ML SQ SCH (05:00)
[2016-10-10 07:54] VITALS: BP 130/82
[2016-10-10] MEDS: INSULIN ASPART 100 UNITS/ML, PEN SQ-INSULIN SCH ×2 (08:21→12:20)
[2016-10-10] MEDS: INSULIN DETEMIR 100 UNITS/ML, PEN SQ-INSULIN SCH (08:21)
[2016-10-10] MEDS: SODIUM CHLORIDE FLUSH 10ML SYR IVF SCH ×2 (08:24→22:52)
[2016-10-10] MEDS: FERROUS GLUCONATE 324 MG TABLET PO SCH ×2 (08:24→16:51)
[2016-10-10] MEDS: DOCUSATE 100 MG CAPSULE PO SCH ×2 (08:24→21:00)
[2016-10-10] MEDS ORDERED: INSULIN DETEMIR 100 UNITS/ML, PEN SQ-INSULIN SCH ×2 (10:00→17:00)
[2016-10-10 13:36] VITALS: BP 130/72
[2016-10-10] MEDS: DEXTROSE 50%, 50ML SYRINGE IVPush PRN (16:45)
[2016-10-10 20:00] VITALS: BP 123/79
[2016-10-11] MEDS ORDERED: DEXTROSE 50%, 50ML SYRINGE ONE ×2 (03:29→22:51)
[2016-10-11] MEDS: DEXTROSE 50%, 50ML SYRINGE IVPush PRN ×2 (03:31→22:49)
[2016-10-11 03:36] VITALS: BP 123/69
[2016-10-11 04:37] LABS: BLOOD UREA NITROGEN 24 mg/dL (7-18)
[2016-10-11] MEDS: ENOXAPARIN 40 MG/0.4 ML SQ SCH (04:51)
[2016-10-11] MEDS ORDERED: INSULIN ASPART 100 UNITS/ML, PEN SQ-INSULIN SCH (07:00)
[2016-10-11 08:12] VITALS: BP 112/73
[2016-10-11] MEDS: FERROUS GLUCONATE 324 MG TABLET PO SCH ×2 (08:17→17:22)
[2016-10-11] MEDS: DOCUSATE 100 MG CAPSULE PO SCH ×2 (08:18→19:55)
[2016-10-11] MEDS: SODIUM CHLORIDE FLUSH 10ML SYR IVF SCH ×2 (08:20→19:55)
[2016-10-11] MEDS ORDERED: POTASSIUM CHLORIDE 40 MEQ in SODIUM CHLORIDE 0.9% 500 ML IV ONE (10:30)
[2016-10-11] MEDS: INSULIN ASPART 100 UNITS/ML, PEN SQ-INSULIN SCH ×4 (11:23→19:56)
[2016-10-11 15:24] VITALS: BP 145/79
[2016-10-11 20:00] VITALS: BP 97/68
[2016-10-11 20:30] VITALS: BP 122/71
[2016-10-12 01:13] VITALS: BP 114/74
[2016-10-12] MEDS: ENOXAPARIN 40 MG/0.4 ML SQ SCH (05:00)
[2016-10-12 07:22] VITALS: BP 129/79
[2016-10-12] MEDS: DOCUSATE 100 MG CAPSULE PO SCH ×2 (09:00→21:00)
[2016-10-12] MEDS: SODIUM CHLORIDE FLUSH 10ML SYR IVF SCH ×2 (09:08→21:02)
[2016-10-12] MEDS: FERROUS GLUCONATE 324 MG TABLET PO SCH ×2 (09:08→17:58)
[2016-10-12] MEDS: INSULIN ASPART 100 UNITS/ML, PEN SQ-INSULIN SCH ×4 (09:08→21:17)
[2016-10-12 13:48] VITALS: BP 144/80
[2016-10-12] MEDS ORDERED: INSULIN DETEMIR 100 UNITS/ML, PEN SQ-INSULIN STA (16:48)
[2016-10-12 19:40] VITALS: BP 123/79
[2016-10-13 02:50] VITALS: BP 114/75
[2016-10-13 04:49] LABS: BLOOD UREA NITROGEN 24 mg/dL (7-18)
[2016-10-13] MEDS: ENOXAPARIN 40 MG/0.4 ML SQ SCH (04:54)
[2016-10-13 07:05] VITALS: BP 118/76
[2016-10-13] MEDS: INSULIN ASPART 100 UNITS/ML, PEN SQ-INSULIN SCH ×4 (07:49→21:31)
[2016-10-13] MEDS: FERROUS GLUCONATE 324 MG TABLET PO SCH ×2 (07:50→16:35)
[2016-10-13] MEDS: DOCUSATE 100 MG CAPSULE PO SCH ×2 (07:50→21:29)
[2016-10-13] MEDS: SODIUM CHLORIDE FLUSH 10ML SYR IVF SCH ×2 (07:50→21:29)
[2016-10-13] MEDS ORDERED: INSULIN DETEMIR 100 UNITS/ML, PEN SQ-INSULIN SCH ×4 (10:00→21:00)
[2016-10-13 12:35] VITALS: BP 115/73
[2016-10-13 19:42] VITALS: BP 121/79
[2016-10-13] MEDS: TERBINAFINE CRM 1%, 15GM TP SCH (21:28)
[2016-10-14 01:22] VITALS: BP 127/86
[2016-10-14 01:46] VITALS: BP 145/87
[2016-10-14] MEDS ORDERED: DIPHENHYDRAMINE 25 MG CAPSULE PO ONE (02:00)
[2016-10-14 07:17] VITALS: BP 102/70
[2016-10-14] MEDS: INSULIN ASPART 100 UNITS/ML, PEN SQ-INSULIN SCH ×4 (07:33→21:00)
[2016-10-14] MEDS: FERROUS GLUCONATE 324 MG TABLET PO SCH ×2 (07:33→16:36)
[2016-10-14] MEDS: SODIUM CHLORIDE FLUSH 10ML SYR IVF SCH ×2 (07:33→21:11)
[2016-10-14] MEDS: TERBINAFINE CRM 1%, 15GM TP SCH ×2 (09:12→20:29)
[2016-10-14] MEDS: DOCUSATE 100 MG CAPSULE PO SCH ×3 (09:12→20:30)
[2016-10-14] MEDS: ENOXAPARIN 40 MG/0.4 ML SQ SCH (09:13)
[2016-10-14 13:24] VITALS: BP 127/77
[2016-10-14 18:48] VITALS: BP 155/90
[2016-10-14] MEDS ORDERED: INSULIN DETEMIR 100 UNITS/ML, PEN SQ-INSULIN SCH (21:00)
[2016-10-14] MEDS ORDERED: INSULIN ASPART 100 UNITS/ML, PEN SQ-INSULIN ONE (21:30)
[2016-10-15 01:33] VITALS: BP 127/83
[2016-10-15] MEDS: DOCUSATE 100 MG CAPSULE PO SCH (07:29)
[2016-10-15] MEDS: FERROUS GLUCONATE 324 MG TABLET PO SCH (07:29)
[2016-10-15] MEDS: ENOXAPARIN 40 MG/0.4 ML SQ SCH (07:29)
[2016-10-15] MEDS: SODIUM CHLORIDE FLUSH 10ML SYR IVF SCH (07:30)
[2016-10-15] MEDS: TERBINAFINE CRM 1%, 15GM TP SCH (07:30)
[2016-10-15] MEDS: INSULIN ASPART 100 UNITS/ML, PEN SQ-INSULIN SCH ×2 (07:35→11:43)
[2016-10-15 08:01] VITALS: BP 130/83
[2016-10-15] MEDS ORDERED: TERB15CR19 TP (12:32)
[2016-10-15] MEDS ORDERED: INSU300I INJ (12:32)
[2016-10-15] MEDS ORDERED: DOCU-131 PO (12:32)
[2016-10-15] MEDS ORDERED: FERR325T16 PO (12:32)
[2016-10-15] MEDS ORDERED: RIVA15TA PO (12:41)
== END 2016-10-15 13:51 | disposition left against medical advice (07) | DRG 638 ==
LOC: ED 23:33 → EDIP 10-08 04:22 → 3NW 10-08 09:51 → DCLOUNGE 10-15 13:50
DX: E11.649 Type 2 diabetes mellitus with hypoglycemia without coma (principal); D68.59 Other primary thrombophilia; E11.22 Type 2 diabetes mellitus with diabetic chronic kidney disease; D69.6 Thrombocytopenia, unspecified; D47.3 Essential (hemorrhagic) thrombocythemia; D50.9 Iron deficiency anemia, unspecified; N18.9 Chronic kidney disease, unspecified; E78.5 Hyperlipidemia, unspecified; E87.6 Hypokalemia; I12.9 Hypertensive chronic kidney disease with stage 1 through stage 4 chronic kidney disease, or unspecified chronic kidney disease; I48.2 Chronic atrial fibrillation; N18.2 Chronic kidney disease, stage 2 (mild); Z59.0 Homelessness; Z72.0 Tobacco use; Z79.01 Long term (current) use of anticoagulants; Z79.4 Long term (current) use of insulin; Z82.49 Family history of ischemic heart disease and other diseases of the circulatory system; Z86.73 Personal history of transient ischemic attack (TIA), and cerebral infarction without residual deficits; Z91.11 Patient's noncompliance with dietary regimen; Z91.14 Patient's other noncompliance with medication regimen
CPT/HCPCS: 36415; 80048; 80053; 82040; 82728; 82947; 82962; 83540; 83550; 83735; 84100; 85025; 96372; 96374; 96376; J1650; J1815; J3480; J7042; J7040; Q0163

== ENCOUNTER 2016-10-17 11:27 | Inpatient (IN) | payer MEDICAID ==
[~2016-10-17] VITALS: Ht 177.8 cm; Wt 72.0 kg
[~2016-10-17 11:27] MED LIST changes: +DOCU-131 PO; +FERR325T16 PO; +TERB15CR19 TP
[2016-10-17] MEDS ORDERED: SODIUM CHLORIDE 0.9% 1,000 ML IV ONE ×3 (11:37→13:40)
[2016-10-17] MEDS ORDERED: ONDANSETRON 2MG/ML, 2ML IVPush ONE (12:00)
[2016-10-17] MEDS ORDERED: SODIUM CHLORIDE 0.9% 1,000ML IVBOLUS ONE (12:00)
[2016-10-17] MEDS ORDERED: SODIUM CHLORIDE FLUSH 10ML SYR IVF ONE (12:00)
[2016-10-17] MEDS ORDERED: ONDANSETRON 2MG/ML, 2ML ONE (12:06)
[2016-10-17] MEDS ORDERED: MAALOX/HYOSCYAMINE/LIDOCAINE 45 ML BTL ONE (12:06)
[2016-10-17] MEDS ORDERED: MAALOX/HYOSCYAMINE/LIDOCAINE 45 ML BTL PO ONE (12:30)
[2016-10-17 12:36] LABS: HEMATOCRIT 38.6 % (39.2-51.8); HEMOGLOBIN 12.5 g/dL (13.7-18.0); WHITE BLOOD COUNT 9.5 x10^3/uL (3.4-10)
[2016-10-17 12:47] LABS: ASPARTATE AMINO TRANSFERASE 16 U/L (15-37); BLOOD UREA NITROGEN 26 mg/dL (7-18)
[2016-10-17] MEDS ORDERED: SODIUM CHLORIDE FLUSH 10ML SYR IVF PRN (14:00)
[2016-10-17] MEDS ORDERED: DEXTROSE 50%, 50ML SYRINGE IVPush PRN (15:00)
[2016-10-17] MEDS ORDERED: DEXTROSE 4 GM TAB.CHEW PO PRN (15:00)
[2016-10-17] MEDS ORDERED: GLUCAGON 1 MG IM PRN ×2 (15:00→16:30)
[2016-10-17] MEDS ORDERED: BISACODYL 10 MG SUPP PR PRN ×2 (15:00→16:30)
[2016-10-17] MEDS ORDERED: POLYETHYLENE GLYCOL 17 GM PACKET PO PRN ×2 (15:00→16:30)
[2016-10-17] MEDS ORDERED: ACETAMINOPHEN 325 MG TABLET PO PRN ×2 (15:00→16:30)
[2016-10-17] MEDS ORDERED: DOCUSATE 100 MG CAPSULE PO PRN ×4 (15:00→16:30)
[2016-10-17] MEDS ORDERED: ONDANSETRON 2MG/ML, 2ML IVPush PRN ×2 (15:00→16:30)
[2016-10-17 15:28] VITALS: BP 121/67
[2016-10-17] MEDS: POTASSIUM CHLORIDE 10 MEQ in SODIUM CHLORIDE 0.9% 1,000 ML IV SCH ×3 (15:31→22:33)
[2016-10-17] MEDS: INSULIN ASPART 100 UNITS/ML, PEN SQ-INSULIN SCH ×2 (15:32→21:21)
[2016-10-17] MEDS: FERROUS GLUCONATE 324 MG TABLET PO SCH (16:00)
[2016-10-17 19:52] VITALS: BP 142/76
[2016-10-17] MEDS ORDERED: INSULIN DETEMIR 100 UNITS/ML, PEN SQ-INSULIN SCH (21:00)
[2016-10-17] MEDS: DEXTROSE 50%, 50ML SYRINGE IVPush PRN ×2 (21:11→22:05)
[2016-10-17] MEDS: SODIUM CHLORIDE FLUSH 10ML SYR IVF SCH (21:14)
[2016-10-17] MEDS: SIMVASTATIN 20 MG TABLET PO SCH (21:15)
[2016-10-18 03:28] VITALS: BP 136/91
[2016-10-18] MEDS: POTASSIUM CHLORIDE 10 MEQ in SODIUM CHLORIDE 0.9% 1,000 ML IV SCH (05:22)
[2016-10-18 05:24] LABS: HEMATOCRIT 33.2 % (39.2-51.8); HEMOGLOBIN 10.6 g/dL (13.7-18.0); WHITE BLOOD COUNT 7.8 x10^3/uL (3.4-10)
[2016-10-18 05:42] LABS: BLOOD UREA NITROGEN 15 mg/dL (7-18)
[2016-10-18 07:08] VITALS: BP 114/72
[2016-10-18] MEDS ORDERED: RIVAROXABAN 15 MG TABLET PO SCH (09:00)
[2016-10-18] MEDS ORDERED: ASPIRIN 81 MG TABLET EC PO SCH (09:00)
[2016-10-18] MEDS: INSULIN ASPART 100 UNITS/ML, PEN SQ-INSULIN SCH ×4 (09:08→21:00)
[2016-10-18] MEDS: RIVAROXABAN 15 MG TABLET PO SCH (09:08)
[2016-10-18] MEDS: FERROUS GLUCONATE 324 MG TABLET PO SCH ×2 (09:08→17:14)
[2016-10-18] MEDS: SODIUM CHLORIDE FLUSH 10ML SYR IVF SCH ×2 (09:09→22:13)
[2016-10-18] MEDS: ASPIRIN 81 MG TABLET EC PO SCH (09:09)
[2016-10-18 13:32] VITALS: BP 116/72
[2016-10-18] MEDS: DEXTROSE 50%, 50ML SYRINGE IVPush PRN ×2 (16:25→20:30)
[2016-10-18] MEDS: DEXTROSE 4 GM TAB.CHEW PO PRN (17:13)
[2016-10-18 18:59] VITALS: BP 123/73
[2016-10-18] MEDS: SIMVASTATIN 20 MG TABLET PO SCH (22:13)
[2016-10-19] MEDS: DEXTROSE 50%, 50ML SYRINGE IVPush PRN (00:35)
[2016-10-19 01:06] VITALS: BP 126/75
[2016-10-19 07:27] VITALS: BP 126/91
[2016-10-19] MEDS: ASPIRIN 81 MG TABLET EC PO SCH (08:11)
[2016-10-19] MEDS: SODIUM CHLORIDE FLUSH 10ML SYR IVF SCH ×2 (08:12→20:23)
[2016-10-19] MEDS: RIVAROXABAN 15 MG TABLET PO SCH (08:12)
[2016-10-19] MEDS: INSULIN ASPART 100 UNITS/ML, PEN SQ-INSULIN SCH ×4 (08:12→20:23)
[2016-10-19] MEDS: FERROUS GLUCONATE 324 MG TABLET PO SCH ×2 (08:12→16:02)
[2016-10-19 13:53] VITALS: BP 109/64
[2016-10-19 19:08] VITALS: BP 101/58
[2016-10-19] MEDS: SIMVASTATIN 20 MG TABLET PO SCH (20:23)
[2016-10-20 04:08] VITALS: BP 112/68
[2016-10-20 05:11] LABS: HEMATOCRIT 36.6 % (39.2-51.8); HEMOGLOBIN 11.8 g/dL (13.7-18.0); WHITE BLOOD COUNT 8.2 x10^3/uL (3.4-10)
[2016-10-20 05:15] LABS: BLOOD UREA NITROGEN 26 mg/dL (7-18)
[2016-10-20] MEDS ORDERED: INSULIN ASPART 100 UNITS/ML, PEN SQ-INSULIN ONE (05:30)
[2016-10-20 06:50] VITALS: BP 107/70
[2016-10-20] MEDS ORDERED: SODIUM CHLORIDE 0.9% 1,000ML IVBOLUS ONE (07:00)
[2016-10-20] MEDS: FERROUS GLUCONATE 324 MG TABLET PO SCH ×2 (07:42→16:11)
[2016-10-20] MEDS: INSULIN ASPART 100 UNITS/ML, PEN SQ-INSULIN SCH ×4 (07:42→19:35)
[2016-10-20] MEDS: ASPIRIN 81 MG TABLET EC PO SCH (07:42)
[2016-10-20] MEDS: RIVAROXABAN 15 MG TABLET PO SCH (07:42)
[2016-10-20] MEDS: SODIUM CHLORIDE FLUSH 10ML SYR IVF SCH ×2 (07:42→19:35)
[2016-10-20] MEDS: INSULIN DETEMIR 100 UNITS/ML, PEN SQ-INSULIN SCH (09:27)
[2016-10-20 12:35] VITALS: BP 149/91
[2016-10-20 19:34] VITALS: BP 155/83
[2016-10-20] MEDS: SIMVASTATIN 20 MG TABLET PO SCH (19:35)
[2016-10-21] MEDS: INSULIN ASPART 100 UNITS/ML, PEN SQ-INSULIN SCH ×4 (07:00→21:00)
[2016-10-21 07:10] VITALS: BP 112/74
[2016-10-21] MEDS: FERROUS GLUCONATE 324 MG TABLET PO SCH ×2 (08:00→17:56)
[2016-10-21 08:18] LABS: BLOOD UREA NITROGEN 28 mg/dL (7-18)
[2016-10-21] MEDS: SODIUM CHLORIDE FLUSH 10ML SYR IVF SCH ×2 (09:00→21:13)
[2016-10-21] MEDS: INSULIN DETEMIR 100 UNITS/ML, PEN SQ-INSULIN SCH (09:00)
[2016-10-21] MEDS: ASPIRIN 81 MG TABLET EC PO SCH (09:00)
[2016-10-21] MEDS: RIVAROXABAN 15 MG TABLET PO SCH (09:00)
[2016-10-21 13:22] VITALS: BP 112/75
[2016-10-21 20:00] VITALS: BP 130/87
[2016-10-21] MEDS: SIMVASTATIN 20 MG TABLET PO SCH (21:13)
[2016-10-21] MEDS: DEXTROSE 4 GM TAB.CHEW PO PRN (22:02)
[2016-10-22 01:03] VITALS: BP 113/74
[2016-10-22 06:55] VITALS: BP 107/69
[2016-10-22] MEDS: INSULIN ASPART 100 UNITS/ML, PEN SQ-INSULIN SCH ×2 (07:18→11:14)
[2016-10-22] MEDS: FERROUS GLUCONATE 324 MG TABLET PO SCH (07:18)
[2016-10-22] MEDS: RIVAROXABAN 15 MG TABLET PO SCH (08:37)
[2016-10-22] MEDS: SODIUM CHLORIDE FLUSH 10ML SYR IVF SCH (08:37)
[2016-10-22] MEDS: ASPIRIN 81 MG TABLET EC PO SCH (08:37)
[2016-10-22] MEDS: INSULIN DETEMIR 100 UNITS/ML, PEN SQ-INSULIN SCH (08:38)
[2016-10-22 14:47] VITALS: BP 119/78
== END 2016-10-22 16:18 | disposition left against medical advice (07) | DRG 637 ==
LOC: ED 13:39 → EDIP 13:40 → ED 13:42 → 3NE 15:00
DX: E10.65 Type 1 diabetes mellitus with hyperglycemia (principal); N17.0 Acute kidney failure with tubular necrosis; D68.69 Other thrombophilia; I13.10 Hypertensive heart and chronic kidney disease without heart failure, with stage 1 through stage 4 chronic kidney disease, or unspecified chronic kidney disease; E10.649 Type 1 diabetes mellitus with hypoglycemia without coma; N18.3 Chronic kidney disease, stage 3 (moderate); I48.2 Chronic atrial fibrillation; E10.21 Type 1 diabetes mellitus with diabetic nephropathy; E87.1 Hypo-osmolality and hyponatremia; F68.10 Factitious disorder imposed on self, unspecified; R41.3 Other amnesia; F17.220 Nicotine dependence, chewing tobacco, uncomplicated; E10.22 Type 1 diabetes mellitus with diabetic chronic kidney disease; D64.9 Anemia, unspecified; E10.42 Type 1 diabetes mellitus with diabetic polyneuropathy; E78.5 Hyperlipidemia, unspecified; F10.21 Alcohol dependence, in remission; Z79.4 Long term (current) use of insulin; Z82.49 Family history of ischemic heart disease and other diseases of the circulatory system; Z59.0 Homelessness; I69.318 Other symptoms and signs involving cognitive functions following cerebral infarction; Z91.19 Patient's noncompliance with other medical treatment and regimen; Z79.01 Long term (current) use of anticoagulants; Z79.899 Other long term (current) drug therapy
CPT/HCPCS: 36415; 71010; 80048; 80053; 81003; 82010; 82800; 82947; 82962; 83036; 83690; 83735; 83880; 84132; 85025; 93005; 96360; J1815; J3480; J7030

== ENCOUNTER 2016-10-27 17:34 | Emergency (ER) | payer MEDICAID ==
[~2016-10-27] VITALS: Ht 177.8 cm; Wt 75.0 kg
[2016-10-27 18:13] LABS: HEMATOCRIT 35.5 % (39.2-51.8); HEMOGLOBIN 11.6 g/dL (13.7-18.0); WHITE BLOOD COUNT 10.9 x10^3/uL (3.4-10)
[2016-10-27 18:25] LABS: BLOOD UREA NITROGEN 10 mg/dL (7-18)
[2016-10-27 21:16] VITALS: BP 139/73
== END 2016-10-27 21:18 | disposition home or self-care (01) ==
LOC: ED 21:12
DX: E11.65 Type 2 diabetes mellitus with hyperglycemia (principal); I10 Essential (primary) hypertension; Z86.73 Personal history of transient ischemic attack (TIA), and cerebral infarction without residual deficits; Z79.4 Long term (current) use of insulin
CPT/HCPCS: 36415; 80048; 82040; 82962; 85025; 99284

== ENCOUNTER 2016-10-27 23:32 | Emergency (ER) | payer MEDICAID ==
[~2016-10-27] VITALS: Ht 177.8 cm; Wt 75.0 kg
[2016-10-27 23:49] VITALS: BP 145/84
[2016-10-28] MEDS ORDERED: SODIUM CHLORIDE FLUSH 10ML SYR IVF ONE
[2016-10-28 00:36] LABS: HEMATOCRIT 39.7 % (39.2-51.8); HEMOGLOBIN 12.9 g/dL (13.7-18.0); WHITE BLOOD COUNT 10.3 x10^3/uL (3.4-10)
[2016-10-28 00:48] LABS: BLOOD UREA NITROGEN 10 mg/dL (7-18)
[2016-10-28] MEDS ORDERED: DEXTROSE 50%, 50ML SYRINGE IVPush ONE (01:00)
== END 2016-10-28 02:28 | disposition left against medical advice (07) ==
LOC: ED 23:59
DX: E11.649 Type 2 diabetes mellitus with hypoglycemia without coma (principal); I10 Essential (primary) hypertension; E87.1 Hypo-osmolality and hyponatremia; I48.91 Unspecified atrial fibrillation; E11.40 Type 2 diabetes mellitus with diabetic neuropathy, unspecified; Z79.4 Long term (current) use of insulin
CPT/HCPCS: 36415; 80048; 82040; 82962; 85025; 99284

== ENCOUNTER 2016-11-04 10:25 | Inpatient (IN) | payer MEDICAID ==
[~2016-11-04] VITALS: Ht 177.8 cm; Wt 75.5 kg
[2016-11-04] MEDS ORDERED: ONDANSETRON 2MG/ML, 2ML ONE (10:52)
[2016-11-04 10:56] LABS: HEMATOCRIT 41.6 % (39.2-51.8); HEMOGLOBIN 13.3 g/dL (13.7-18.0); WHITE BLOOD COUNT 17.6 x10^3/uL (3.4-10)
[2016-11-04] MEDS ORDERED: SODIUM CHLORIDE FLUSH 10ML SYR IVF ONE (11:00)
[2016-11-04] MEDS ORDERED: ONDANSETRON 2MG/ML, 2ML IVPush ONE (11:00)
[2016-11-04] MEDS ORDERED: SODIUM CHLORIDE 0.9% 1,000ML IVBOLUS ONE (11:00)
[2016-11-04 11:03] LABS: ASPARTATE AMINO TRANSFERASE 19 U/L (15-37); BLOOD UREA NITROGEN 24 mg/dL (7-18)
[2016-11-04] MEDS ORDERED: SODIUM CHLORIDE 0.9% 1,000 ML IV STA (11:25)
[2016-11-04] MEDS ORDERED: REGULAR INSULIN 62.5 UNITS in SODIUM CHLORIDE 0.9% 249.375 ML IV SCH (11:26)
[2016-11-04] MEDS ORDERED: INSULIN SINGLE DOSE, ER SQ-INSULIN ONE (11:29)
[2016-11-04] MEDS ORDERED: INSULIN REGULAR 100 UNITS/ML, 3ML VIAL IVPush ONE (11:30)
[2016-11-04] MEDS: SODIUM CHLORIDE 0.9% 1,000 ML IV SCH ×7 (12:00→21:36)
[2016-11-04] MEDS ORDERED: POLYETHYLENE GLYCOL 17 GM PACKET PO PRN (15:00)
[2016-11-04] MEDS ORDERED: ACETAMINOPHEN 325 MG TABLET PO PRN (15:00)
[2016-11-04] MEDS ORDERED: BISACODYL 10 MG SUPP PR PRN (15:00)
[2016-11-04] MEDS ORDERED: DOCUSATE 100 MG CAPSULE PO PRN (15:00)
[2016-11-04] MEDS ORDERED: REGULAR INSULIN 62.5 UNITS in SODIUM CHLORIDE 0.9% 249.375 ML IV PRN (15:00)
[2016-11-04] MEDS ORDERED: MAALOX/HYOSCYAMINE/LIDOCAINE 45 ML BTL PO ONE (17:00)
[2016-11-04 17:07] LABS: BLOOD UREA NITROGEN 22 mg/dL (7-18)
[2016-11-04] MEDS: D5%-0.45% NACL 1,000 ML IV SCH (18:30)
[2016-11-04] MEDS ORDERED: D5%-0.45% NACL 1,000 ML IV SCH (18:30)
[2016-11-04 20:43] LABS: BLOOD UREA NITROGEN 17 mg/dL (7-18)
[2016-11-04] MEDS: TERBINAFINE CRM 1%, 15GM TP SCH (20:54)
[2016-11-04] MEDS: FAMOTIDINE 20 MG TABLET PO SCH (20:54)
[2016-11-04] MEDS: SIMVASTATIN 20 MG TABLET PO SCH (20:54)
[2016-11-05 00:44] LABS: BLOOD UREA NITROGEN 13 mg/dL (7-18)
[2016-11-05] MEDS: D5%-0.45% NACL 1,000 ML IV SCH ×2 (02:34→08:37)
[2016-11-05 04:44] LABS: HEMATOCRIT 35.1 % (39.2-51.8); HEMOGLOBIN 11.5 g/dL (13.7-18.0); WHITE BLOOD COUNT 14.6 x10^3/uL (3.4-10)
[2016-11-05 04:46] VITALS: BP 100/58
[2016-11-05 04:47] LABS: BLOOD UREA NITROGEN 11 mg/dL (7-18)
[2016-11-05] MEDS: RIVAROXABAN 15 MG TABLET PO SCH (08:36)
[2016-11-05] MEDS: ASPIRIN 81 MG TABLET EC PO SCH (08:36)
[2016-11-05] MEDS: FAMOTIDINE 20 MG TABLET PO SCH (08:36)
[2016-11-05] MEDS: TERBINAFINE CRM 1%, 15GM TP SCH ×2 (08:41→22:02)
[2016-11-05] MEDS ORDERED: SODIUM PHOSPHATE 20 MMOL in SODIUM CHLORIDE 0.9% 500 ML IV ONE (09:00)
[2016-11-05] MEDS: INSULIN DETEMIR 100 UNITS/ML, PEN SQ-INSULIN SCH ×2 (11:06→22:05)
[2016-11-05] MEDS: INSULIN ASPART 100 UNITS/ML, PEN SQ-INSULIN SCH ×3 (11:06→21:00)
[2016-11-05 15:36] VITALS: BP 111/66
[2016-11-05 19:24] VITALS: BP 137/77
[2016-11-05] MEDS: SIMVASTATIN 20 MG TABLET PO SCH (21:59)
[2016-11-06 01:41] VITALS: BP 100/60
[2016-11-06 05:27] LABS: BLOOD UREA NITROGEN 8 mg/dL (7-18)
[2016-11-06 05:28] LABS: HEMATOCRIT 32.5 % (39.2-51.8); HEMOGLOBIN 10.8 g/dL (13.7-18.0); WHITE BLOOD COUNT 9.2 x10^3/uL (3.4-10)
[2016-11-06] MEDS: INSULIN ASPART 100 UNITS/ML, PEN SQ-INSULIN SCH ×2 (07:27→11:19)
[2016-11-06 07:43] VITALS: BP 145/73
[2016-11-06] MEDS: RIVAROXABAN 15 MG TABLET PO SCH (09:20)
[2016-11-06] MEDS: TERBINAFINE CRM 1%, 15GM TP SCH (09:20)
[2016-11-06] MEDS: INSULIN DETEMIR 100 UNITS/ML, PEN SQ-INSULIN SCH (09:20)
[2016-11-06] MEDS: ASPIRIN 81 MG TABLET EC PO SCH (09:20)
[2016-11-06 13:00] VITALS: BP 147/81
== END 2016-11-06 13:18 | disposition home or self-care (01) | DRG 638 ==
LOC: ED 10:38 → EDIP 11:55 → CCU 14:40 → 4NOR 11-05 14:09
PROVIDERS: ADMIT Hospitalist; ATTEND Hospitalist
DX: E13.10 Other specified diabetes mellitus with ketoacidosis without coma (principal); E87.1 Hypo-osmolality and hyponatremia; N17.9 Acute kidney failure, unspecified; I48.2 Chronic atrial fibrillation; E87.5 Hyperkalemia; I10 Essential (primary) hypertension; E86.0 Dehydration; D72.829 Elevated white blood cell count, unspecified; E11.42 Type 2 diabetes mellitus with diabetic polyneuropathy; F10.21 Alcohol dependence, in remission; Z59.0 Homelessness; Z79.01 Long term (current) use of anticoagulants; Z86.73 Personal history of transient ischemic attack (TIA), and cerebral infarction without residual deficits; Z91.14 Patient's other noncompliance with medication regimen; Z91.19 Patient's noncompliance with other medical treatment and regimen; Z79.4 Long term (current) use of insulin; Z87.891 Personal history of nicotine dependence; Z82.49 Family history of ischemic heart disease and other diseases of the circulatory system
CPT/HCPCS: 36415; 71010; 80048; 80053; 81003; 82010; 82962; 84100; 85025; 87081; 93005; 96361; 96374; 96375; J1815; J2405; J7030; J7040; J7050

== ENCOUNTER 2016-11-23 03:04 | Inpatient (IN) | payer MEDICAID ==
[~2016-11-23] VITALS: Ht 177.8 cm; Wt 71.4 kg
[~2016-11-23 03:04] MED LIST changes: +NICO-486 TD; -NICO1PAT13 TD
[2016-11-23] MEDS ORDERED: ONDANSETRON 2MG/ML, 2ML IVPush ONE (03:30)
[2016-11-23] MEDS ORDERED: SODIUM CHLORIDE 0.9% 1,000ML IVBOLUS ONE ×3 (03:30→05:00)
[2016-11-23] MEDS ORDERED: ONDANSETRON 2MG/ML, 2ML ONE (03:53)
[2016-11-23 04:02] LABS: HEMATOCRIT 43.5 % (39.2-51.8); HEMOGLOBIN 13.6 g/dL (13.7-18.0); WHITE BLOOD COUNT 14.3 x10^3/uL (3.4-10)
[2016-11-23 04:10] LABS: BLOOD UREA NITROGEN 22 mg/dL (7-18)
[2016-11-23] MEDS ORDERED: REGULAR INSULIN 62.5 UNITS in SODIUM CHLORIDE 0.9% 249.375 ML IV PRN ×2 (04:31→04:41)
[2016-11-23] MEDS ORDERED: SODIUM CHLORIDE 0.9% 1,000 ML IV SCH (04:41)
[2016-11-23] MEDS ORDERED: D5%-0.45% NACL 1,000 ML IV PRN (04:41)
[2016-11-23] MEDS ORDERED: SODIUM CHLORIDE 0.9% 1,000 ML IV ONE (04:42)
[2016-11-23] MEDS ORDERED: INSULIN REGULAR 100 UNITS/ML, 3ML VIAL IVPush ONE (05:00)
[2016-11-23] MEDS ORDERED: ONDANSETRON 2MG/ML, 2ML IVPush PRN ×2 (05:00)
[2016-11-23] MEDS ORDERED: INSULIN REGULAR 100 UNITS/ML, 3ML VIAL ONE (05:20)
[2016-11-23 06:05] VITALS: BP 103/53
[2016-11-23 06:37] LABS: PH, VENOUS 7.045 pH (7.320-7.420)
[2016-11-23 06:38] LABS: BLOOD UREA NITROGEN 21 mg/dL (7-18)
[2016-11-23 06:49] LABS: BLOOD UREA NITROGEN 21 mg/dL (7-18)
[2016-11-23 09:21] LABS: BLOOD UREA NITROGEN 21 mg/dL (7-18)
[2016-11-23 12:07] LABS: BLOOD UREA NITROGEN 19 mg/dL (7-18)
[2016-11-23 12:58] LABS: DAU SCREEN DISCLAIMER
[2016-11-23 16:10] LABS: BLOOD UREA NITROGEN 15 mg/dL (7-18)
[2016-11-23] MEDS: SODIUM CHLORIDE 0.9% 1,000 ML IV SCH (17:13)
[2016-11-23] MEDS: INSULIN DETEMIR 100 UNITS/ML, PEN SQ-INSULIN SCH (17:14)
[2016-11-23 20:35] VITALS: BP 108/68
[2016-11-23] MEDS ORDERED: SIMVASTATIN 20 MG TABLET PO SCH (21:00)
[2016-11-23] MEDS: TERBINAFINE CRM 1%, 15GM TP SCH (21:37)
[2016-11-23] MEDS: INSULIN ASPART 100 UNITS/ML, PEN SQ-INSULIN SCH (21:37)
[2016-11-24 02:00] VITALS: BP 110/70
[2016-11-24] MEDS: SODIUM CHLORIDE 0.9% 1,000 ML IV SCH ×2 (03:44→13:38)
[2016-11-24] MEDS ORDERED: REGULAR INSULIN 62.5 UNITS in SODIUM CHLORIDE 0.9% 249.375 ML IV PRN (04:31)
[2016-11-24] MEDS ORDERED: D5%-0.45NACL+KCL 20MEQ 1,000 ML IV PRN (04:41)
[2016-11-24 05:24] LABS: HEMATOCRIT 33.1 % (39.2-51.8); HEMOGLOBIN 10.8 g/dL (13.7-18.0); WHITE BLOOD COUNT 12.3 x10^3/uL (3.4-10)
[2016-11-24 05:46] LABS: BLOOD UREA NITROGEN 9 mg/dL (7-18)
[2016-11-24] MEDS: INSULIN DETEMIR 100 UNITS/ML, PEN SQ-INSULIN SCH ×2 (06:13→16:22)
[2016-11-24] MEDS: INSULIN ASPART 100 UNITS/ML, PEN SQ-INSULIN SCH ×3 (07:00→16:22)
[2016-11-24 08:16] VITALS: BP 115/67
[2016-11-24] MEDS ORDERED: ASPIRIN 81 MG TABLET EC PO SCH (09:00)
[2016-11-24] MEDS: TERBINAFINE CRM 1%, 15GM TP SCH ×2 (09:00→09:02)
[2016-11-24] MEDS: RIVAROXABAN 15 MG TABLET PO SCH ×2 (09:01→09:58)
[2016-11-24 14:35] VITALS: BP 116/67
== END 2016-11-24 17:38 | disposition home or self-care (01) | DRG 638 ==
LOC: ED 03:18 → SUATTDRO 04:41 → EDIP 04:44 → CCU 06:01 → 4WST 18:18
PROVIDERS: ADMIT Hospitalist; ATTEND Hospitalist
DX: E10.10 Type 1 diabetes mellitus with ketoacidosis without coma (principal); N17.9 Acute kidney failure, unspecified; E87.5 Hyperkalemia; I48.2 Chronic atrial fibrillation; E86.0 Dehydration; I10 Essential (primary) hypertension; D72.829 Elevated white blood cell count, unspecified; Z59.0 Homelessness; Z79.01 Long term (current) use of anticoagulants; Z86.73 Personal history of transient ischemic attack (TIA), and cerebral infarction without residual deficits
CPT/HCPCS: 36415; 71010; 80048; 80307; 81003; 82010; 82040; 82803; 82962; 83036; 85025; 87081; 93005; 96361; 96374; 96375; J1815; J2405; G0479; J3480; J7030

== ENCOUNTER 2016-12-11 13:56 | Emergency (ER) | payer MEDICAID ==
[~2016-12-11] VITALS: Ht 177.8 cm; Wt 70.0 kg
[2016-12-11] MEDS ORDERED: SODIUM CHLORIDE 0.9% 1,000ML IVBOLUS ONE ×2 (14:00→15:00)
[2016-12-11] MEDS ORDERED: ONDANSETRON 2MG/ML, 2ML IVPush ONE (14:00)
[2016-12-11 14:30] LABS: PH, VENOUS 7.314 pH (7.320-7.420)
[2016-12-11 14:37] LABS: HEMATOCRIT 38.3 % (39.2-51.8); HEMOGLOBIN 12.4 g/dL (13.7-18.0); WHITE BLOOD COUNT 14.4 x10^3/uL (3.4-10)
[2016-12-11 14:44] LABS: BLOOD UREA NITROGEN 14 mg/dL (7-18)
[2016-12-11 14:47] LABS: ASPARTATE AMINO TRANSFERASE 11 U/L (15-37)
[2016-12-11] MEDS ORDERED: ONDANSETRON 2MG/ML, 2ML ONE (15:02)
[2016-12-11 16:13] VITALS: BP 118/68
[2016-12-11 17:27] LABS: BLOOD UREA NITROGEN 12 mg/dL (7-18)
== END 2016-12-11 19:37 | disposition home or self-care (01) ==
LOC: ED 15:20
DX: I10 Essential (primary) hypertension (principal); I48.91 Unspecified atrial fibrillation; E11.10 Type 2 diabetes mellitus with ketoacidosis without coma
CPT/HCPCS: 36415; 80048; 80053; 81003; 82010; 82803; 82962; 83690; 85025; 87040; 96360; 99284; J7030

== ENCOUNTER 2016-12-13 16:37 | Emergency (ER) | payer MEDICAID ==
[~2016-12-13] VITALS: Ht 177.8 cm; Wt 71.5 kg
[2016-12-13] MEDS ORDERED: ATOR20TA PO (16:54)
[2016-12-13] MEDS ORDERED: SODIUM CHLORIDE 0.9% 1,000 ML IV ONE (16:54)
[2016-12-13] MEDS ORDERED: SODIUM CHLORIDE 0.9% 1,000ML IVBOLUS ONE (17:00)
[2016-12-13] MEDS ORDERED: SODIUM CHLORIDE FLUSH 10ML SYR IVF ONE (17:00)
[2016-12-13 17:33] LABS: HEMATOCRIT 30.5 % (39.2-51.8); WHITE BLOOD COUNT 11.6 x10^3/uL (3.4-10)
[2016-12-13 17:40] LABS: BLOOD UREA NITROGEN 12 mg/dL (7-18)
[2016-12-13 17:42] LABS: ASPARTATE AMINO TRANSFERASE 7 U/L (15-37)
[2016-12-13 20:50] VITALS: BP 119/68
== END 2016-12-13 20:52 | disposition home or self-care (01) ==
LOC: ED 18:38
DX: R53.1 Weakness (principal); L03.032 Cellulitis of left toe; E11.65 Type 2 diabetes mellitus with hyperglycemia; I10 Essential (primary) hypertension; E11.10 Type 2 diabetes mellitus with ketoacidosis without coma
CPT/HCPCS: 36415; 73630; 80053; 82010; 82962; 83605; 83690; 85025; 93005; 96360; 99285; J7030

== ENCOUNTER 2017-05-18 13:41 | Inpatient (IN) | payer MEDICAID ==
[~2017-05-18] VITALS: Ht 180.3 cm; Wt 68.0 kg
[~2017-05-18 13:41] MED LIST changes: +APIX5TAB PO; +ATOR20TA PO; +ATOR40TA78 PO; +CHOL10003 PEG; +CHOL239. PO; +GUAI200T3 PO; +METO25TA35 PO; +PANT40GR PO
[2017-05-18] MEDS ORDERED: PIPERACILLIN/TAZO/PMX 3.375GM 50 ML ONE (13:55)
[2017-05-18] MEDS ORDERED: ACETAMINOPHEN 650 MG/20.3 ML UDC ONE (13:55)
[2017-05-18] MEDS ORDERED: ACETAMINOPHEN 650 MG SUPP PR ONE (14:00)
[2017-05-18] MEDS ORDERED: SODIUM CHLORIDE 0.9% 1,000ML IVBOLUS ONE (14:00)
[2017-05-18] MEDS ORDERED: PIPERACILLIN/TAZO/PMX 3.375GM 50 ML IVPB ONE (14:00)
[2017-05-18] MEDS ORDERED: PLEASE ENTER HEIGHT AND WEIGHT MC SCH (14:00)
[2017-05-18] MEDS ORDERED: ACETAMINOPHEN 650 MG/20.3 ML UDC GT ONE (14:00)
[2017-05-18] MEDS ORDERED: VANCOMYCIN PER PHARMACY IV ONE (14:00)
[2017-05-18] MEDS ORDERED: SODIUM CHLORIDE FLUSH 10ML SYR IVF ONE (14:00)
[2017-05-18 14:25] LABS: PH, VENOUS 7.402 pH (7.320-7.420)
[2017-05-18 14:29] LABS: BASOPHILS # (AUTO) 0.05 x10^3/uL (0-0.1); BASOPHILS % (AUTO) 0 % (0-1); EOSINOPHILS % (AUTO) 1 % (1-7); LYMPHOCYTES # (AUTO) 3.56 x10^3/uL (1-3.4); LYMPHOCYTES % (AUTO) 26 % (22-44); MD NO; MEAN CORPUSCULAR HGB CONC 31.7 g/dL (33.2-36.2); MEAN CORPUSCULAR VOLUME 85.1 fL (81-97); MEAN PLATELET VOLUME 9.3 fL (7.4-10.4); MONOCYTES # (AUTO) 0.88 x10^3/uL (0.2-0.8); MONOCYTES % (AUTO) 7 % (2-9); NEUTROPHILS # (AUTO) 8.93 x10^3/uL (1.8-6.8); NEUTROPHILS % (AUTO) 66 % (42-75); PLATELET COUNT 272 x10^3/uL (130-400); RED BLOOD COUNT 3.33 x10^6/uL (4.38-5.82); RED CELL DISTRIBUTION WIDTH 16.3 % (9.4-14.8)
[2017-05-18 14:36] LABS: INTERNATIONAL NORMALIZED RATIO 0.9 (0.93-1.1); PROTHROMBIN TIME 9.4 Seconds (9.6-11.5)
[2017-05-18 14:41] LABS: ACETONE, SERUM Negative (Negative)
[2017-05-18 14:45] LABS: ALANINE AMINOTRANSFERASE 59 U/L (12-78); ALBUMIN 2.7 g/dL (3.4-5.0); ANION GAP 8 mmol/L (5-15); CALCIUM 8.7 mg/dL (8.5-10.1); CHLORIDE 112 mmol/L (98-107); CREATININE 1.76 mg/dL (0.7-1.3)
[2017-05-18 14:47] LABS: ALKALINE PHOSPHATASE 114 U/L (45-117); BILIRUBIN,TOTAL 0.1 mg/dL (0.2-1.0); TOTAL PROTEIN 7.3 g/dL (6.4-8.2)
[2017-05-18] MEDS ORDERED: D5%-0.45% NACL 1,000 ML IV SCH (15:00)
[2017-05-18] MEDS ORDERED: VANCOMYCIN 1,200 MG in SODIUM CHLORIDE 0.9% 250 ML IV ONE (15:00)
[2017-05-18] MEDS ORDERED: PANTOPRAZOLE 80 MG in SODIUM CHLORIDE 0.9% 100 ML IV SCH (15:20)
[2017-05-18] MEDS ORDERED: PANTOPRAZOLE 80 MG in SODIUM CHLORIDE 0.9% 50 ML IVPB ONE (15:20)
[2017-05-18] MEDS ORDERED: ACETAMINOPHEN 325 MG TABLET PO PRN (15:30)
[2017-05-18] MEDS ORDERED: ONDANSETRON ODT 4 MG PEG PRN (15:30)
[2017-05-18] MEDS ORDERED: VANCOMYCIN PER PHARMACY MC PRN (15:30)
[2017-05-18] MEDS: INSULIN LISPRO 100 UNITS/ML, PEN SQ-INSULIN SCH ×2 (15:30→20:00)
[2017-05-18] MEDS ORDERED: LABETALOL 5MG/ML, 20ML IVPush PRN (15:30)
[2017-05-18] MEDS ORDERED: BISACODYL 10 MG SUPP PR PRN (15:30)
[2017-05-18 15:37] LABS: MICROSCOPIC INDICATED
[2017-05-18 15:42] LABS: CULTURE INDICATED? YES
[2017-05-18] MEDS ORDERED: OMEP-110 PO (15:48)
[2017-05-18] MEDS ORDERED: RIVA20TA PO (15:48)
[2017-05-18] MEDS ORDERED: TAMS-11 PO (15:48)
[2017-05-18] MEDS ORDERED: METF500T4 PO (15:48)
[2017-05-18] MEDS: GUAIFENESIN 200 MG TABLET PO SCH (16:00)
[2017-05-18 16:19] LABS: HCT (SEDRATE) 28.4 % (39.2-51.8)
[2017-05-18] MEDS: CHOLECALCIFEROL 1,000 UNIT TABLET PEG SCH (16:30)
[2017-05-18] MEDS ORDERED: PHARMACOKINETIC MONITORING MC PRN (17:00)
[2017-05-18 17:58] LABS: SEDIMENTATION RATE > 120 mm/hr (0-10)
[2017-05-18] MEDS: METOPROLOL TARTRATE 25 MG TABLET PO SCH (18:00)
[2017-05-18] MEDS: PANTOPRAZOLE GRAN. PKT 40 MG PO SCH (18:00)
[2017-05-18] MEDS: INSULIN GLARGINE 100 UNITS/ML, PEN SQ-INSULIN SCH ×2 (18:05→21:00)
[2017-05-18] MEDS: CEFTRIAXONE PMX 2GM/50ML 50 ML IV SCH (18:16)
[2017-05-18 18:20] VITALS: BP 94/58
[2017-05-18] MEDS: D5%-0.45NACL+KCL 20MEQ 1,000 ML IV SCH (20:14)
[2017-05-18] MEDS: FLUCONAZOLE 200 MG/100 ML 100 ML IV SCH (21:04)
[2017-05-18 23:58] VITALS: BP 113/70
[2017-05-19] MEDS: ATORVASTATIN 40 MG TABLET PO SCH ×2 (00:18→21:50)
[2017-05-19] MEDS: GUAIFENESIN 200 MG TABLET PO SCH ×5 (00:19→21:50)
[2017-05-19] MEDS: APIXABAN 5 MG TABLET PO SCH ×3 (00:19→21:00)
[2017-05-19 02:50] LABS: ALANINE AMINOTRANSFERASE 40 U/L (12-78); ALBUMIN 2.1 g/dL (3.4-5.0); ANION GAP 7 mmol/L (5-15); CALCIUM 7.8 mg/dL (8.5-10.1); CHLORIDE 114 mmol/L (98-107); CREATININE 1.22 mg/dL (0.7-1.3)
[2017-05-19 02:52] LABS: ALKALINE PHOSPHATASE 89 U/L (45-117); BILIRUBIN,TOTAL 0.3 mg/dL (0.2-1.0); TOTAL PROTEIN 6.1 g/dL (6.4-8.2)
[2017-05-19] MEDS: INSULIN LISPRO 100 UNITS/ML, PEN SQ-INSULIN SCH ×4 (03:27→21:24)
[2017-05-19 03:39] VITALS: BP 104/60
[2017-05-19 05:16] VITALS: BP 91/50
[2017-05-19] MEDS: METOPROLOL TARTRATE 25 MG TABLET PO SCH ×2 (06:00→18:00)
[2017-05-19 06:26] LABS: BASOPHILS # (AUTO) 0.03 x10^3/uL (0-0.1); BASOPHILS % (AUTO) 0 % (0-1); EOSINOPHILS # (AUTO) 0.18 x10^3/uL (0-0.4); EOSINOPHILS % (AUTO) 2 % (1-7); LYMPHOCYTES # (AUTO) 2.36 x10^3/uL (1-3.4); LYMPHOCYTES % (AUTO) 20 % (22-44); MD NO; MEAN CORPUSCULAR HEMOGLOBIN 27.7 pg (27.5-34.5); MEAN CORPUSCULAR HGB CONC 32.7 g/dL (33.2-36.2); MEAN CORPUSCULAR VOLUME 84.9 fL (81-97); MEAN PLATELET VOLUME 9.5 fL (7.4-10.4); MONOCYTES # (AUTO) 0.65 x10^3/uL (0.2-0.8); MONOCYTES % (AUTO) 6 % (2-9); NEUTROPHILS # (AUTO) 8.47 x10^3/uL (1.8-6.8); NEUTROPHILS % (AUTO) 73 % (42-75); PLATELET COUNT 235 x10^3/uL (130-400); RED BLOOD COUNT 2.85 x10^6/uL (4.38-5.82); RED CELL DISTRIBUTION WIDTH 16.9 % (9.4-14.8)
[2017-05-19] MEDS: PANTOPRAZOLE GRAN. PKT 40 MG PO SCH ×2 (06:32→18:25)
[2017-05-19] MEDS: D5%-0.45NACL+KCL 20MEQ 1,000 ML IV SCH ×2 (06:32→21:24)
[2017-05-19 06:49] VITALS: BP 97/59
[2017-05-19] MEDS ORDERED: ASPIRIN 81 MG TABLET EC PO SCH (09:00)
[2017-05-19] MEDS: ASPIRIN 81 MG TABLET CHEW PO SCH (10:00)
[2017-05-19] MEDS ORDERED: PHARMACY MAY ADJ FOR RENAL FX MC PRN (10:30)
[2017-05-19 12:00] VITALS: BP 96/60
[2017-05-19 12:38] LABS: CLOSTRIDIUM DIFFICILE ANTIGEN POSITIVE; CLOSTRIDIUM DIFFICILE TOXIN POSITIVE (Negative)
[2017-05-19 12:44] LABS: OCCULT BLOOD POSITIVE (NEGATIVE)
[2017-05-19] MEDS: metroNIDAZOLE 500 MG TABLET GT SCH ×2 (13:00→21:50)
[2017-05-19] MEDS ORDERED: VANCOMYCIN 1,200 MG in SODIUM CHLORIDE 0.9% 250 ML IV SCH (16:00)
[2017-05-19] MEDS: CHOLECALCIFEROL 1,000 UNIT TABLET PEG SCH (16:38)
[2017-05-19] MEDS: LACTOBACILLUS 1GM/ PACKET GT SCH ×2 (16:42→21:50)
[2017-05-19] MEDS: INSULIN GLARGINE 100 UNITS/ML, PEN SQ-INSULIN SCH (16:57)
[2017-05-19] MEDS: CEFTRIAXONE PMX 2GM/50ML 50 ML IV SCH (18:25)
[2017-05-19 19:56] VITALS: BP 99/59
[2017-05-19] MEDS: FLUCONAZOLE 200 MG/100 ML 100 ML IV SCH (21:23)
[2017-05-20 02:50] VITALS: BP 136/76
[2017-05-20] MEDS: INSULIN LISPRO 100 UNITS/ML, PEN SQ-INSULIN SCH ×4 (03:00→20:33)
[2017-05-20] MEDS: INSULIN GLARGINE 100 UNITS/ML, PEN SQ-INSULIN SCH ×2 (03:23→16:23)
[2017-05-20 04:03] LABS: ANION GAP 3 mmol/L (5-15); CALCIUM 8.5 mg/dL (8.5-10.1); CHLORIDE 118 mmol/L (98-107); CREATININE 0.84 mg/dL (0.7-1.3)
[2017-05-20 04:46] LABS: MEAN CORPUSCULAR HEMOGLOBIN 26.9 pg (27.5-34.5); MEAN CORPUSCULAR HGB CONC 31.6 g/dL (33.2-36.2); MEAN CORPUSCULAR VOLUME 85.1 fL (81-97); MEAN PLATELET VOLUME 9.3 fL (7.4-10.4); PLATELET COUNT 237 x10^3/uL (130-400); RED BLOOD COUNT 2.69 x10^6/uL (4.38-5.82); RED CELL DISTRIBUTION WIDTH 16.2 % (9.4-14.8)
[2017-05-20 05:18] LABS: BASOPHILS # (AUTO) 0.02 x10^3/uL (0-0.1); BASOPHILS % (AUTO) 0 % (0-1); EOSINOPHILS # (AUTO) 0.39 x10^3/uL (0-0.4); EOSINOPHILS % (AUTO) 4 % (1-7); LYMPHOCYTES # (AUTO) 2.81 x10^3/uL (1-3.4); LYMPHOCYTES % (AUTO) 25 % (22-44); MD SCAN; MONOCYTES # (AUTO) 0.81 x10^3/uL (0.2-0.8); MONOCYTES % (AUTO) 7 % (2-9); NEUTROPHILS # (AUTO) 7.02 x10^3/uL (1.8-6.8); NEUTROPHILS % (AUTO) 64 % (42-75)
[2017-05-20] MEDS: PANTOPRAZOLE GRAN. PKT 40 MG PO SCH ×2 (06:01→18:00)
[2017-05-20] MEDS: GUAIFENESIN 200 MG TABLET PO SCH ×4 (06:01→20:32)
[2017-05-20] MEDS: metroNIDAZOLE 500 MG TABLET GT SCH ×2 (06:02→13:26)
[2017-05-20] MEDS: METOPROLOL TARTRATE 25 MG TABLET PO SCH ×2 (06:09→18:00)
[2017-05-20 06:10] VITALS: BP 130/82
[2017-05-20 07:50] VITALS: BP 124/78
[2017-05-20] MEDS: LACTOBACILLUS 1GM/ PACKET GT SCH (09:00)
[2017-05-20] MEDS: APIXABAN 5 MG TABLET PO SCH (09:00)
[2017-05-20] MEDS: ASPIRIN 81 MG TABLET CHEW PO SCH (11:53)
[2017-05-20 12:57] VITALS: BP 129/71
[2017-05-20] MEDS ORDERED: POTASSIUM CHLORIDE 20 MEQ TAB.ER.PRT PO ONE (13:00)
[2017-05-20] MEDS: IRON SUCROSE COMPLEX 100MG/5ML IV SCH (13:26)
[2017-05-20] MEDS: D5%-0.45% NACL 1,000 ML IV SCH (14:05)
[2017-05-20] MEDS ORDERED: LACTOBACILLUS CHEW TABLET PEG SCH (16:00)
[2017-05-20] MEDS: CHOLECALCIFEROL 1,000 UNIT TABLET PEG SCH (16:22)
[2017-05-20] MEDS ORDERED: POTASSIUM PHOSPHATE 44 MEQ in SODIUM CHLORIDE 0.9% 500 ML IV ONE (17:00)
[2017-05-20] MEDS: VANCOMYCIN 50 MG/ML ORAL SUSP PO SCH (17:00)
[2017-05-20] MEDS ORDERED: CEFTRIAXONE 2,000 MG in DEXTROSE 5% 50 ML IV SCH (18:00)
[2017-05-20 19:26] VITALS: BP 113/63
[2017-05-20] MEDS: ATORVASTATIN 40 MG TABLET PO SCH (20:32)
[2017-05-20] MEDS: FLUCONAZOLE 200 MG/100 ML 100 ML IV SCH (20:32)
[2017-05-21] MEDS: VANCOMYCIN 50 MG/ML ORAL SUSP PO SCH ×5 (00:09→23:29)
[2017-05-21 01:53] VITALS: BP 126/75
[2017-05-21 03:12] LABS: OCCULT BLOOD POSITIVE (NEGATIVE)
[2017-05-21] MEDS: D5%-0.45% NACL 1,000 ML IV SCH (03:17)
[2017-05-21] MEDS: INSULIN LISPRO 100 UNITS/ML, PEN SQ-INSULIN SCH ×4 (03:18→21:10)
[2017-05-21] MEDS: INSULIN GLARGINE 100 UNITS/ML, PEN SQ-INSULIN SCH ×2 (03:18→16:52)
[2017-05-21] MEDS: PANTOPRAZOLE GRAN. PKT 40 MG PO SCH (05:39)
[2017-05-21] MEDS: METOPROLOL TARTRATE 25 MG TABLET PO SCH ×2 (05:40→18:28)
[2017-05-21] MEDS: GUAIFENESIN 200 MG TABLET PO SCH ×4 (05:40→21:10)
[2017-05-21 06:30] VITALS: BP 123/75
[2017-05-21 06:52] LABS: MEAN CORPUSCULAR HEMOGLOBIN 26.4 pg (27.5-34.5); MEAN CORPUSCULAR HGB CONC 31.6 g/dL (33.2-36.2); MEAN CORPUSCULAR VOLUME 83.4 fL (81-97); MEAN PLATELET VOLUME 8.5 fL (7.4-10.4); PLATELET COUNT 279 x10^3/uL (130-400); RED BLOOD COUNT 2.74 x10^6/uL (4.38-5.82); RED CELL DISTRIBUTION WIDTH 16.3 % (9.4-14.8)
[2017-05-21 06:56] LABS: ANION GAP 6 mmol/L (5-15); CALCIUM 8.1 mg/dL (8.5-10.1); CHLORIDE 110 mmol/L (98-107); CREATININE 0.73 mg/dL (0.7-1.3)
[2017-05-21 07:06] LABS: BASOPHILS # (AUTO) 0.03 x10^3/uL (0-0.1); BASOPHILS % (AUTO) 0 % (0-1); EOSINOPHILS # (AUTO) 0.31 x10^3/uL (0-0.4); EOSINOPHILS % (AUTO) 4 % (1-7); LYMPHOCYTES # (AUTO) 2.13 x10^3/uL (1-3.4); LYMPHOCYTES % (AUTO) 27 % (22-44); MD SCAN; MONOCYTES # (AUTO) 0.57 x10^3/uL (0.2-0.8); MONOCYTES % (AUTO) 7 % (2-9); NEUTROPHILS # (AUTO) 4.88 x10^3/uL (1.8-6.8); NEUTROPHILS % (AUTO) 62 % (42-75)
[2017-05-21] MEDS: IRON SUCROSE COMPLEX 100MG/5ML IV SCH (09:43)
[2017-05-21 12:07] VITALS: BP 112/73
[2017-05-21 16:49] LABS: OCCULT BLOOD POSITIVE (NEGATIVE)
[2017-05-21] MEDS: CHOLECALCIFEROL 1,000 UNIT TABLET PEG SCH (16:50)
[2017-05-21] MEDS: PANTOPRAZOLE 40 MG IV IVPush SCH (18:14)
[2017-05-21 19:17] VITALS: BP 98/61
[2017-05-21] MEDS: FLUCONAZOLE 200 MG/100 ML 100 ML IV SCH (21:09)
[2017-05-21] MEDS: ATORVASTATIN 40 MG TABLET PO SCH (21:10)
[2017-05-22 01:36] VITALS: BP 118/79
[2017-05-22] MEDS: INSULIN GLARGINE 100 UNITS/ML, PEN SQ-INSULIN SCH ×2 (03:17→17:50)
[2017-05-22] MEDS: INSULIN LISPRO 100 UNITS/ML, PEN SQ-INSULIN SCH ×4 (03:18→20:32)
[2017-05-22] MEDS: METOPROLOL TARTRATE 25 MG TABLET PO SCH ×2 (05:32→17:51)
[2017-05-22] MEDS: PANTOPRAZOLE 40 MG IV IVPush SCH ×2 (05:32→17:51)
[2017-05-22] MEDS: GUAIFENESIN 200 MG TABLET PO SCH ×4 (05:32→20:33)
[2017-05-22] MEDS: VANCOMYCIN 50 MG/ML ORAL SUSP PO SCH ×4 (05:33→23:55)
[2017-05-22 06:15] LABS: BASOPHILS # (AUTO) 0.01 x10^3/uL (0-0.1); BASOPHILS % (AUTO) 0 % (0-1); EOSINOPHILS # (AUTO) 0.27 x10^3/uL (0-0.4); EOSINOPHILS % (AUTO) 4 % (1-7); LYMPHOCYTES # (AUTO) 3.06 x10^3/uL (1-3.4); LYMPHOCYTES % (AUTO) 39 % (22-44); MD NO; MEAN CORPUSCULAR HEMOGLOBIN 26.9 pg (27.5-34.5); MEAN CORPUSCULAR HGB CONC 32.2 g/dL (33.2-36.2); MEAN CORPUSCULAR VOLUME 83.5 fL (81-97); MONOCYTES # (AUTO) 0.55 x10^3/uL (0.2-0.8); MONOCYTES % (AUTO) 7 % (2-9); NEUTROPHILS # (AUTO) 4.03 x10^3/uL (1.8-6.8); NEUTROPHILS % (AUTO) 51 % (42-75); PLATELET COUNT 329 x10^3/uL (130-400); RED BLOOD COUNT 2.89 x10^6/uL (4.38-5.82)
[2017-05-22 06:23] LABS: ANION GAP 8 mmol/L (5-15); CALCIUM 8.3 mg/dL (8.5-10.1); CHLORIDE 106 mmol/L (98-107); CREATININE 0.71 mg/dL (0.7-1.3)
[2017-05-22 08:00] VITALS: BP 120/74
[2017-05-22] MEDS: IRON SUCROSE COMPLEX 100MG/5ML IV SCH (10:34)
[2017-05-22 12:53] VITALS: BP 127/85
[2017-05-22] MEDS: CHOLECALCIFEROL 1,000 UNIT TABLET PEG SCH (17:51)
[2017-05-22 19:51] VITALS: BP 100/61
[2017-05-22] MEDS: ATORVASTATIN 40 MG TABLET PO SCH (20:32)
[2017-05-22] MEDS: FLUCONAZOLE 200 MG/100 ML 100 ML IV SCH (20:38)
[2017-05-23 01:28] VITALS: BP 112/69
[2017-05-23] MEDS: INSULIN GLARGINE 100 UNITS/ML, PEN SQ-INSULIN SCH ×2 (03:16→16:42)
[2017-05-23] MEDS: INSULIN LISPRO 100 UNITS/ML, PEN SQ-INSULIN SCH ×4 (03:17→20:30)
[2017-05-23] MEDS: VANCOMYCIN 50 MG/ML ORAL SUSP PO SCH ×3 (05:56→18:36)
[2017-05-23] MEDS: PANTOPRAZOLE 40 MG IV IVPush SCH ×2 (05:56→18:36)
[2017-05-23] MEDS: METOPROLOL TARTRATE 25 MG TABLET PO SCH ×2 (05:56→18:36)
[2017-05-23] MEDS: GUAIFENESIN 200 MG TABLET PO SCH ×4 (05:56→20:29)
[2017-05-23 07:45] VITALS: BP 136/81
[2017-05-23] MEDS: IRON SUCROSE COMPLEX 100MG/5ML IV SCH (08:54)
[2017-05-23 09:20] LABS: BASOPHILS # (AUTO) 0.05 x10^3/uL (0-0.1); BASOPHILS % (AUTO) 1 % (0-1); EOSINOPHILS % (AUTO) 3 % (1-7); LYMPHOCYTES # (AUTO) 2.93 x10^3/uL (1-3.4); LYMPHOCYTES % (AUTO) 39 % (22-44); MD NO; MEAN CORPUSCULAR HEMOGLOBIN 26.7 pg (27.5-34.5); MEAN CORPUSCULAR HGB CONC 32.4 g/dL (33.2-36.2); MEAN CORPUSCULAR VOLUME 82.3 fL (81-97); MEAN PLATELET VOLUME 7.4 fL (7.4-10.4); MONOCYTES # (AUTO) 0.56 x10^3/uL (0.2-0.8); MONOCYTES % (AUTO) 8 % (2-9); NEUTROPHILS # (AUTO) 3.79 x10^3/uL (1.8-6.8); NEUTROPHILS % (AUTO) 50 % (42-75); PLATELET COUNT 408 x10^3/uL (130-400); RED BLOOD COUNT 2.86 x10^6/uL (4.38-5.82)
[2017-05-23 09:31] LABS: ANION GAP 6 mmol/L (5-15); CALCIUM 8.6 mg/dL (8.5-10.1); CHLORIDE 104 mmol/L (98-107); CREATININE 0.69 mg/dL (0.7-1.3)
[2017-05-23 13:10] VITALS: BP 124/80
[2017-05-23] MEDS ORDERED: VANC1VIA3 PO (14:48)
[2017-05-23] MEDS: CHOLECALCIFEROL 1,000 UNIT TABLET PEG SCH (16:43)
[2017-05-23 19:04] VITALS: BP 110/72
[2017-05-23] MEDS: ATORVASTATIN 40 MG TABLET PO SCH (20:29)
[2017-05-23] MEDS: FLUCONAZOLE 200 MG/100 ML 100 ML IV SCH (20:29)
[2017-05-24] MEDS: VANCOMYCIN 50 MG/ML ORAL SUSP PO SCH ×3 (00:25→15:25)
[2017-05-24 01:48] VITALS: BP 118/76
[2017-05-24] MEDS: INSULIN GLARGINE 100 UNITS/ML, PEN SQ-INSULIN SCH ×2 (03:30→15:30)
[2017-05-24] MEDS: INSULIN LISPRO 100 UNITS/ML, PEN SQ-INSULIN SCH ×3 (03:30→15:29)
[2017-05-24] MEDS: PANTOPRAZOLE 40 MG IV IVPush SCH (05:46)
[2017-05-24] MEDS: GUAIFENESIN 200 MG TABLET PO SCH ×2 (05:46→11:24)
[2017-05-24] MEDS: METOPROLOL TARTRATE 25 MG TABLET PO SCH (05:47)
[2017-05-24 06:55] VITALS: BP 112/73
[2017-05-24 12:50] VITALS: BP 114/72
== END 2017-05-24 16:14 | DRG 871 ==
LOC: ED 15:23 → EDIP 15:24 → ED 15:40 → 4WST 16:19
PROVIDERS: ADMIT Hospitalist; ATTEND Hospitalist
PROC: 02HV33Z Insertion of Infusion Device into Superior Vena Cava, Percutaneous Approach (ICD-10-PCS; principal; 2017-05-18)
PROC: B548ZZA Ultrasonography of Superior Vena Cava, Guidance (ICD-10-PCS; 2017-05-18)
PROC: 0T9B70Z Drainage of Bladder with Drainage Device, Via Natural or Artificial Opening (ICD-10-PCS; 2017-05-18)
DX: A41.9 Sepsis, unspecified organism (principal); G93.40 Encephalopathy, unspecified; N17.0 Acute kidney failure with tubular necrosis; J96.00 Acute respiratory failure, unspecified whether with hypoxia or hypercapnia; Z99.11 Dependence on respirator [ventilator] status; E44.0 Moderate protein-calorie malnutrition; A04.72 Enterocolitis due to Clostridium difficile, not specified as recurrent; B49 Unspecified mycosis; J18.9 Pneumonia, unspecified organism; R53.2 Functional quadriplegia; D68.69 Other thrombophilia; E87.0 Hyperosmolality and hypernatremia; N39.0 Urinary tract infection, site not specified; E87.1 Hypo-osmolality and hyponatremia; I13.10 Hypertensive heart and chronic kidney disease without heart failure, with stage 1 through stage 4 chronic kidney disease, or unspecified chronic kidney disease; D63.8 Anemia in other chronic diseases classified elsewhere; I48.2 Chronic atrial fibrillation; E11.22 Type 2 diabetes mellitus with diabetic chronic kidney disease; E11.65 Type 2 diabetes mellitus with hyperglycemia; E78.5 Hyperlipidemia, unspecified; E87.6 Hypokalemia; E11.42 Type 2 diabetes mellitus with diabetic polyneuropathy; F10.10 Alcohol abuse, uncomplicated; N18.2 Chronic kidney disease, stage 2 (mild); R13.12 Dysphagia, oropharyngeal phase; R65.20 Severe sepsis without septic shock; Z51.5 Encounter for palliative care; Z79.01 Long term (current) use of anticoagulants; Z79.4 Long term (current) use of insulin; Z82.49 Family history of ischemic heart disease and other diseases of the circulatory system; Z87.440 Personal history of urinary (tract) infections; Z68.20 Body mass index [BMI] 20.0-20.9, adult
CPT/HCPCS: 36415; 36556; 71045; 74230; 80048; 80053; 81001; 82010; 82272; 82728; 82803; 82962; 83540; 83550; 83605; 83735; 84100; 84145; 84295; 84466; 85014; 85018; 85025; 85610; 85651; 86850; 86900; 87040; 87086; 87324; 93005; 93306; 96365; 96367; 96368; J0696; J1756; J2543; J3370; 92523-GN; C9113; J1450; J1815; J3480; J7030; J7040; J7050

== ENCOUNTER 2017-06-07 11:31 | Emergency (ER) | payer MEDICAID ==
[~2017-06-07] VITALS: Ht 177.8 cm; Wt 72.0 kg
[~2017-06-07 11:31] MED LIST changes: +METF500T4 PO; +OMEP-110 PO; +RIVA20TA PO; +TAMS-11 PO; +VANC1VIA3 PO
[2017-06-07] MEDS ORDERED: VISIPAQUE 270 MG/ML, 50ML BOTTLE ONE (13:49)
[2017-06-07 15:17] VITALS: BP 106/66
== END 2017-06-07 15:57 | disposition home or self-care (01) ==
LOC: ED 12:04
DX: Z43.1 Encounter for attention to gastrostomy (principal); I10 Essential (primary) hypertension; E11.9 Type 2 diabetes mellitus without complications; I48.91 Unspecified atrial fibrillation
CPT/HCPCS: 49450; 75984; 99284; C1729; C1769; Q9966; 43760

== ENCOUNTER 2017-11-15 22:53 | Emergency (ER) | payer MEDICAID ==
[~2017-11-15] VITALS: Ht 177.8 cm; Wt 76.4 kg
[~2017-11-15 22:53] MED LIST changes: +METF500T17 PO; -METF500T4 PO
[2017-11-16 01:00] VITALS: BP 105/61
== END 2017-11-16 02:56 | disposition home or self-care (01) ==
LOC: ED 11-16 01:21
DX: Z43.1 Encounter for attention to gastrostomy (principal); I48.91 Unspecified atrial fibrillation; E11.9 Type 2 diabetes mellitus without complications; Z86.73 Personal history of transient ischemic attack (TIA), and cerebral infarction without residual deficits
CPT/HCPCS: 43760; 74018; 99284; C1729; 99283

== ENCOUNTER 2018-01-04 12:21 | Day surgery (SDC) | payer MEDICAID ==
[~2018-01-04] VITALS: Ht 180.3 cm; Wt 77.3 kg
[~2018-01-04 12:21] MED LIST changes: +TAMS-11 PEG; -TAMS-11 PO
[2018-01-04] MEDS ORDERED: ASPI-496 PEG (12:55)
[2018-01-04] MEDS ORDERED: VITAMIN D PEG (12:55)
[2018-01-04] MEDS ORDERED: MULT1CAP24 PEG (12:55)
[2018-01-04] MEDS ORDERED: SULF1TAB24 PO (12:59)
[2018-01-04] MEDS ORDERED: SODIUM CHLORIDE 0.9% 1,000 ML IV SCH (13:00)
[2018-01-04 13:02] VITALS: BP 107/74
[2018-01-04] MEDS ORDERED: ARGI1POW4 PO (13:10)
[2018-01-04] MEDS ORDERED: CEFTIN PO (13:10)
[2018-01-04] MEDS ORDERED: INSU100V13 SQ (13:10)
[2018-01-04] MEDS ORDERED: APIX5TAB PO (13:10)
[2018-01-04] MEDS ORDERED: INSU100V5 SQ-INSULIN (13:10)
[2018-01-04] MEDS ORDERED: ONDA4TAB7 PEG (13:10)
== END 2018-01-04 14:50 | disposition home or self-care (01) ==
LOC: OUT 12:21
PROVIDERS: ATTEND Family Medicine
DX: K94.23 Gastrostomy malfunction (principal); I48.91 Unspecified atrial fibrillation; Z79.82 Long term (current) use of aspirin; Z72.89 Other problems related to lifestyle
CPT/HCPCS: 49450; C1729; C1769; 75984

== ENCOUNTER 2018-01-17 19:46 | Emergency (ER) | payer MEDICAID ==
[~2018-01-17] VITALS: Ht 172.7 cm; Wt 79.9 kg
[~2018-01-17 19:46] MED LIST changes: +ARGI1POW4 PO; +ASPI-496 PEG; +CEFTIN PO; +CODE BLUE RESPONSE XX ONE; +EPINEPHRINE SYRINGE 0.1 MG/ML, 10ML ONE; +INSU100V13 SQ; +INSU100V5 SQ-INSULIN; +MULT1CAP24 PEG; +ONDA4TAB7 PEG; +SULF1TAB24 PO; +VITAMIN D PEG
== END 2018-01-17 21:22 | disposition expired ==
LOC: ED 20:29
DX: I46.9 Cardiac arrest, cause unspecified (principal); I48.91 Unspecified atrial fibrillation; E11.9 Type 2 diabetes mellitus without complications; I10 Essential (primary) hypertension; Z86.73 Personal history of transient ischemic attack (TIA), and cerebral infarction without residual deficits
CPT/HCPCS: 36430; 36680; 86923; 92950; 99291; P9016; 36415; 86900